=== PATIENT | male | born 1965 | race Caucasian/White ===

== ENCOUNTER 2016-06-01 09:47 | Observation (INO) ==
[2016-06-01] MEDS ORDERED: Aspirin 81 MG TAB.CHEW PO ONE (09:51)
[2016-06-01] MEDS ORDERED: Nitroglycerin 1 INCH/GM PACKET TP ONE (10:00)
--- NOTE | 2016-06-01 10:01 | Emergency Department Note ---
Disposition Clinical Impression: Chest pain Qualifiers: Chest pain type: unspecified Qualified Code(s): R07.9 - Chest pain, unspecified Hypertension Qualifiers: Hypertension type: essential hypertension Qualified Code(s): I10 - Essential ( primary) hypertension Disposition: Admitted As Inpatient Condition: Good Forms: ED Satisfaction Letter Time of Disposition: 11:42 Chest Pain HPI - General Chief Complaint: ED Chest Pain Stated Complaint: CP Time Seen by Provider: 06/01/16 09:51 Source: patient, family Mode of arrival: ambulatory Limitations: no limitations Vital Signs Reviewed: Yes Nursing Notes Reviewed: Yes - History of Present Illness HPI Narrative: 50-year-old gentleman comes in complaining of chest pain started last night about 7:30. Describes it as substernal with radiation left shoulder and left neck. Patient has had no recent workup and no history of coronary artery disease. Patient does have multiple risk factors including hypertension, cholesterol, cigarette smoking, family history. Pt complaint: chest pain Onset (ago): hour(s) (15) Duration: intermittent Onset: during rest Pain Location: substernal, left chest Severity: moderate, severe Severity scale (1-10): 7 Quality: tightness, similar to prior [place] Pain Radiation: LUE, neck Improves with: nothing Worsens with: nothing Associated symptoms: Denies: fever, cough - Related Data Home Medications Medication Instructions Recorded Confirmed Metoprolol 50 mg PO BID 12/07/14 01/12/16 Aspirin [Adult Low Dose Aspirin EC] 81 mg PO DAILY 03/05/15 01/12/16 Previous Rx's Medication Instructions Recorded Ciprofloxacin [Cipro] 500 mg PO BID #20 tablet 04/05/16 HYDROcodone/Acet 5/325 mg [[place] 1 tab PO Q6H PRN #14 tab 04/05/16 5-325 mg] MetroNIDAZOLE [Flagyl] 500 mg PO TID #30 tablet 04/05/16 Polyethylene Glycol 3350 [MiraLAX] 17 gm PO DAILY 14 Days 04/05/16 Allergies Allergy/AdvReac Type Severity Reaction Status Date / Time Iodinated Contrast Media - Allergy Rash Verified 03/05/15 23:53 Oral and [Iodinated Contrast Media - IV Dye] Penicillins [PCN] Allergy Rash Verified 03/05/15 23:53 All systems ED: reviewed and negative except as stated. Constitutional: Denies: fever, chills, weakness, weight change Eyes: Denies: eye pain, eye discharge, vision change ENT ED: Denies: ear pain, throat pain, dental pain, hearing loss, epistaxis, congestion, dysphagia Cardiovascular: Reports: chest pain. Denies: palpitations, dyspnea on exertion , edema, syncope Respiratory: Denies: cough, dyspnea, wheezes, hemoptysis, stridor Gastrointestinal: Denies: abdominal pain, nausea, vomiting, diarrhea, constipation, hematemesis, melena, hematochezia Genitourinary: Denies: urgency, dysuria, frequency, hematuria Musculoskeletal: Denies: back pain, neck pain, arthralgia, myalgia Integumentary: Denies: rash, abrasion, lesions Neurological: Denies: headache, weakness, numbness, paresthesias, confusion, abnormal gait, vertigo Psychiatric: Denies: anxiety, depression, suicidal thoughts, homicidal thoughts , auditory hallucinations, visual hallucinations Endocrine: Denies: fatigue Hematological/Lymphatic: Denies: easy bleeding, easy bruising Allergic/Immunologic: Denies: facial swelling, urticaria Chest Pain PMH - Past Medical History Medical history: Reports: atrial fibrillation, hypertension, other Surgical history: Reports: other Psychiatric history: Reports: no psych history - Social History Smoking Status: Current every day smoker Alcohol use: Reports: none Drug use: Reports: none Physical Exam - General Limitations: no limitations General appearance: alert, in no apparent distress, appears intoxicated - Head Head exam: atraumatic, normocephalic, normal inspection - Eye Eye exam: Present: normal appearance, PERRL, EOMI - ENT ENT exam: normal exam, normal oropharynx, mucous membranes moist - Neck Neck exam: Present: normal inspection, full ROM, trachea midline - Chest Chest inspection: Present: normal inspection, symmetric chest wall rise - Respiratory Respiratory exam: Present: normal lung sounds bilaterally - Cardiovascular Cardiovascular exam: Present: regular rate, normal rhythm, normal heart sounds - Abdominal Exam Abdominal exam: Present: soft, Non-Tender. Absent: tenderness, distention, guarding, rebound, rigidity - Extremities Exam Extremities exam: Present: normal inspection, full ROM. Absent: tenderness, pedal edema - Expanded Lower Extremity Exam Neurovascular/Tendon exam: Absent: motor deficit, sensory deficit, tendon deficit Gait: observed and normal - Back Exam Back exam: Present: normal inspection, full ROM. Absent: tenderness - Neurological Exam Neurological exam: Present: alert, oriented X3 - Psychiatric Psychiatric exam: Present: normal affect, normal mood - Skin Skin exam: Present: warm, dry, intact, normal color Course - Reevaluation(s) Reevaluation #1: 50-year-old gentleman with multiple risk factors who comes in complaining of chest pain which is consistent with cardiac origin chest pain his workup in the emergency department is negative. Patient has had no recent workup. We will admit the patient for evaluation of the chest pain. Time: 11:41 - Consultations Consultation #1: Discussed with , admit. Time: 11:41 Vital Signs Temperature 98.3 F 06/01/16 09:54 Pulse Rate 70 06/01/16 09:54 Respiratory Rate 16 06/01/16 09:54 Blood Pressure 192/113 06/01/16 09:54 O2 Sat by Pulse Oximetry 97 06/01/16 09:54 Temperature 98.3 F 06/01/16 09:54 Pulse Rate 64 06/01/16 11:07 Respiratory Rate 18 06/01/16 11:07 Blood Pressure 185/106 06/01/16 11:07 O2 Sat by Pulse Oximetry 100 06/01/16 11:07 Oxygen Delivery Oxygen Delivery Room Air Chest Pain - Lab Data Lab results reviewed: Yes I reviewed the patient's lab results. Result diagrams: 06/01/16 10:31 06/01/16 10:31 Lab Results 06/01/16 06/01/16 06/01/16 Range/Units 10:31 10:31 10:31 WBC 7.4 (4.3-11.1) K/mcL RBC 5.42 (4.19-5.50) M/mcL Hgb 15.8 (12.9-16.9) g/dL Hct 46.8 (37.5-50.1) % MCV 86.3 (83.0-100.0) fL MCH 29.2 (28.0-33.3) pg MCHC 33.8 (31.6-35.5) g/dL RDW 12.8 (11.5-14.5) % Plt Count 203 (140-400) K/mcL MPV 10.0 (9.4-12.4) fL Immature Gran % 0.4 (0-4) % Seg Neutrophils % 57.1 % Lymphocytes % 30.2 % Monocytes % 7.9 % Eosinophils % 3.7 % Basophils % 0.7 % Neutrophils # 4.2 (1.6-8.9) K/mcL Lymphocytes # 2.2 (0.6-4.6) K/mcL Monocytes # 0.6 (0.0-1.3) K/mcL Eosinophils # 0.3 (0.0-0.6) K/mcL Basophils # 0.1 (0.0-0.2) K/mcL PT 11.3 (9.4-12.1) Seconds INR 1.0 APTT 30.5 (26.0-36.0) Seconds Sodium (136-145) mEq/L Potassium (3.5-4.5) mEq/L Chloride (98-109) mEq/L Carbon Dioxide (19-29) mEq/L BUN (8-26) mg/dL Creatinine (0.72-1.25) mg/dL Est GFR ( Amer) (> 60) Est GFR (Non-Af Amer) (> 60) BUN/Creatinine Ratio (6-26) Glucose (70-99) mg/dL Calculated Osmolality (280-300) Calcium (8.6-10.8) mg/dL Troponin I (0-0.03) ng/mL B-Natriuretic Peptide 80 (0-100) pg/mL 06/01/16 06/01/16 Range/Units 10:31 10:31 WBC (4.3-11.1) K/mcL RBC (4.19-5.50) M/mcL Hgb (12.9-16.9) g/dL Hct (37.5-50.1) % MCV (83.0-100.0) fL MCH (28.0-33.3) pg MCHC (31.6-35.5) g/dL RDW (11.5-14.5) % Plt Count (140-400) K/mcL MPV (9.4-12.4) fL Immature Gran % (0-4) % Seg Neutrophils % % Lymphocytes % % Monocytes % % Eosinophils % % Basophils % % Neutrophils # (1.6-8.9) K/mcL Lymphocytes # (0.6-4.6) K/mcL Monocytes # (0.0-1.3) K/mcL Eosinophils # (0.0-0.6) K/mcL Basophils # (0.0-0.2) K/mcL PT (9.4-12.1) Seconds INR APTT (26.0-36.0) Seconds Sodium 137 (136-145) mEq/L Potassium 4.0 (3.5-4.5) mEq/L Chloride 105 (98-109) mEq/L Carbon Dioxide 27 (19-29) mEq/L BUN 13 (8-26) mg/dL Creatinine 0.95 (0.72-1.25) mg/dL Est GFR ( Amer) > 60 (> 60) Est GFR (Non-Af Amer) > 60 (> 60) BUN/Creatinine Ratio 14 (6-26) Glucose 96 (70-99) mg/dL Calculated Osmolality 284 (280-300) Calcium 9.2 (8.6-10.8) mg/dL Troponin I 0.00 (0-0.03) ng/mL B-Natriuretic Peptide (0-100) pg/mL - Radiology Data Radiology results reviewed: Yes I reviewed the patient's radiology results. Chest X-Ray 06/01/16 09:51 IMPRESSION: No acute process. D/ / Minesh De Jesus MD / Minesh De Jesus MD Interpreting Provider: Minesh De Jesus MD - EKG Data EKG attestation: Yes I reviewed and interpreted this EKG. EKG shows normal: sinus rhythm Rate: normal Rhythm: NSR Voltage: c/w LVH Interpretation: no acute changes Heart Score - Score History: Moderately Suspicious EKG: Normal Age: 45-65 Risk Factors: Equal/Greater than 3 risk factor or history of atherosclerotic disease Troponin: Less than normal limit HEART Score Total: 4
[2016-06-01 10:37] LABS: Basophils # 0.1 K/mcL (0.0-0.2); Basophils % 0.7 %; Eosinophils # 0.3 K/mcL (0.0-0.6); Eosinophils % 3.7 %; Hematocrit 46.8 % (37.5-50.1); Hemoglobin 15.8 g/dL (12.9-16.9); Immature Granulocytes % 0.4 % (0-4); Lymphocytes # 2.2 K/mcL (0.6-4.6); Lymphocytes % 30.2 %; Mean Corpuscular HGB Conc 33.8 g/dL (31.6-35.5); Mean Corpuscular Hemoglobin 29.2 pg (28.0-33.3); Mean Corpuscular Volume 86.3 fL (83.0-100.0); Monocytes # 0.6 K/mcL (0.0-1.3); Monocytes % 7.9 %; Neutrophils # 4.2 K/mcL (1.6-8.9); Platelet Count 203 K/mcL (140-400); Red Blood Count 5.42 M/mcL (4.19-5.50); Red Cell Distribution Width 12.8 % (11.5-14.5); Segmented Neutrophils % 57.1 %
[2016-06-01 10:45] LABS: Prothrombin Time 11.3 Seconds (9.4-12.1)
[2016-06-01 10:48] LABS: Activated Partial Thrombo Time 30.5 Seconds (26.0-36.0)
[2016-06-01 10:49] LABS: BUN/Creatinine Ratio 14 (6-26); Blood Urea Nitrogen 13 mg/dL (8-26); Calcium 9.2 mg/dL (8.6-10.8); Carbon Dioxide 27 mEq/L (19-29); Chloride 105 mEq/L (98-109); Glucose 96 mg/dL (70-99); Osmolality,Calculated 284 (280-300); Sodium 137 mEq/L (136-145); eGFR For African Americans > 60 (> 60); eGFR For Non-African Americans > 60 (> 60)
[2016-06-01] MEDS ORDERED: Naloxone 0.4 MG/ML INJ IVP PRN (12:15)
[2016-06-01] MEDS ORDERED: Acetaminophen 325 MG TABLET PO PRN (12:15)
--- NOTE | 2016-06-01 12:32 | Internal Med History&Physical ---
<Zaria Recinos M - Last Filed: 06/01/16 12:40> Date of Encounter: 06/01/16 Time of Encounter: 12:21 Assessment and Plan (1) Chest pain Current visit: Yes Status: Acute Patient with chest pain radiating to left shoulder since last evening, relieved by nitro. Risk factors include hypertension, smoking, family history. EKG showed normal sinus rhythm. Troponin negative at 0.00. Continuous playground monitor serial troponins echocardiogram stress test. Qualifiers: Chest pain type: precordial pain Qualified Code(s): R07.2 - Precordial pain (2) Hypertension Current visit: Yes Status: Acute Patient's blood pressure running high since presentation, coming down with nitro paste, with most recent BP 158/85. continue home dose of metoprolol 50mg BID Hold morning metoprolol dose for stress test. Continue to monitor. Patient may need addition of other blood pressure medications to his regimen. Qualifiers: Hypertension type: essential hypertension Qualified Code(s): I10 - Essential (primary) hypertension (3) DVT prophylaxis Current visit: Yes Status: Acute Encourage ambulation anti-embolic stockings Lovenox 40mg SQ daily Internal Medicine - H&P: HPI Chief complaint: chest pain Admitted From: Emergency Dept Plans for Post Hospital Care: Home History of present illness: Mr. Simental is a 50 year old male with hypertension, paroxysmal afib who presented to the emergency room today with complaints of chest pain. He reports the chest pain started last evening at 730 pm, was located in the left sternal area, and radiated to the left shoulder and left neck. He described the pain as constant pressure with occasional stabbing pain. The pain was relieved by nitro applied by the ED. Patient also reports occasional lightheadedness and nausea. He denies any shortness of breath, headache, abdominal pain, fever, chills, sweats. Evaluation in the ED included EKG which showed NSR, troponin which was negative at 0.00. CXR showed no acute process. Other lab values were normal. On exam, patient is alert and oriented, in no acute distress. Lungs are clear to auscultation, heart has regular rate and rhythm. Past Med Surg Social Fam HX - Past Medical History Medical history: atrial fibrillation, hypertension, other Psychiatric history: no psych history - Past Surgical History Surgical History: other (teeth extraction, fatty cyst excision) - Social History Smoking Status: Current every day smoker (27 Pack year history) Smokeless Tobacco Status: No Alcohol use: none Drug use: none - Family History Father Living Status: Still Living Hx Family Cardiac Disorders: Yes Hx Family Endocrine Disorder: Yes (diabetes) Mother Living Status: Still Living Hx Family Endocrine Disorder: Yes (diabetes) Internal Medicine - H&P: Meds Metoprolol 50 mg PO BID 12/07/14 [History] Aspirin [Adult Low Dose Aspirin EC] 81 mg PO DAILY 03/05/15 [History] Ciprofloxacin [Cipro] 500 mg PO BID #20 tablet 04/05/16 [Rx] HYDROcodone/Acet 5/325 mg [[place] 5-325 mg] 1 tab PO Q6H PRN #14 tab 04/05/16 [Rx ] MetroNIDAZOLE [Flagyl] 500 mg PO TID #30 tablet 04/05/16 [Rx] Polyethylene Glycol 3350 [MiraLAX] 17 gm PO DAILY 14 Days 04/05/16 [Rx] Allergies Iodinated Contrast Media - Oral and [Iodinated Contrast Media - IV Dye] Allergy (Verified 03/05/15 23:53) Rash Penicillins [PCN] Allergy (Verified 03/05/15 23:53) Rash All Systems PM: A 10-system review of systems was performed and is negative for pertinent findings except as documented above in the HPI. - Constitutional Constitutional: no chills, no fever(s), no night sweats - EENT Eyes: no change in vision, no discharge, no pain, no photophobia Ears: no ear discharge, no ear pain, no tinnitus Nose, mouth and throat: no dysphagia, no nasal discharge, no neck pain, no sore throat - Cardiovascular Cardiovascular ROS IM: chest pain, lightheadedness, no diaphoresis, no dyspnea, no palpitations, no syncope - Respiratory Respiratory: no cough, no dyspnea, no wheezing, no excessive phlegm production - Gastrointestinal Gastrointestinal: nausea, no abdominal pain, no diarrhea, no hematemesis, no hematochezia, no melena, no vomiting - Musculoskeletal Musculoskeletal ROS IM: no numbness, no tingling - Integumentary Integumentary IM: no rash, no unusual bruising - Neurological Neurological ROS: no confusion, no convulsions, no focal weakness, no numbness, no tingling, no tremor(s) - Hematologic/Lymphatic Hematologic/Lymphatic: no easy bruising - Constitutional Vitals: Temp Pulse Resp BP Pulse Ox 98.3 F 62 18 166/109 100 06/01/16 09:54 06/01/16 12:01 06/01/16 12:09 06/01/16 12:09 06/01/16 12:01 General appearance: Present: A&O X 3, pleasant, no acute distress - Head Head exam: Present: atraumatic, normocephalic - Eye Eye exam: Present: PERRL, conjuntiva pink, sclera anicteric - Neck Neck exam general surgery: Present: supple, trachea midline. Absent: lymphadenopathy - Respiratory Respiratory exam: Present: CTAB. Absent: accessory muscle use, rales, rhonchi, wheezes - Cardiovascular Cardiovascular exam: Present: RRR, +S1, +S2. Absent: diastolic murmur, gallop, rubs, systolic murmur - GI/Abdominal GI/Abdominal exam: Present: normal bowel sounds, soft, no peritoneal signs. Absent: distended, tenderness - Extremities Exam Extremities exam: Present: warm, radial pulses palpable and symetrical. Absent : calf tenderness, cyanotic, pedal edema - Neurological Exam Neurological exam: Present: CN II-XII intact, oriented X3, no focal deficits. Absent: facial droop, speech deficit - Skin Skin exam: Present: dry, intact Internal Med - H&P Results - Labs CBC & Chem 7: 06/01/16 10:31 06/01/16 10:31 <Greg Cervantes - Last Filed: 06/01/16 13:09> Date of Encounter: 06/01/16 Internal Medicine - H&P: HPI History of present illness: Mr. Simental is a 50 year old male All Systems PM: A 10-system review of systems was performed and is negative for pertinent findings except as documented above in the HPI. - Constitutional Vitals: Temp Pulse Resp BP Pulse Ox 97.5 F L 52 15 158/85 96 06/01/16 12:36 06/01/16 12:36 06/01/16 12:36 06/01/16 12:36 06/01/16 12:36 Internal Med - H&P Results - Labs CBC & Chem 7: 06/01/16 10:31 06/01/16 10:31 - Attending Attestation I examined this patient and my medical decision-making was reviewed with the DOCKETING SPECIALIST/PA/Advanced Practice Nurse/Resident Physician. I agree with the documented findings, disposition and treatment plan as described except to the extent set forth below. I saw and examined Mr. Simental in the emergency department. I spoke with the patient and his in the day. Patient immediately due to chest pain, he has risk factors such as hypertension, chronic active smoker, hyperlipidemia. We will admit the patient for observation and monitor his cardiac biomarkers, telemetry monitoring. We will request a stress test tomorrow in a.m. provided.cardiac biomarkers are negative for ischemia. It was discussed with our CLEANING AND WASHING EQUIPMENT OPERATOR, I agree her assessment and findings. DVT prophylaxis as per hospital protocol, obtain lipid panel. Smoking cessation was strongly recommended.
[2016-06-01] MEDS: Nicotine 21 MG PATCH.TD24 TD SCH (17:50)
--- NOTE | 2016-06-01 22:47 | Electrocardiograph Report ---
[facility] Test Date: 2016-06-01 Pat Name: Quirino Simental Department: 104 Room: 3B48 Gender: M Broadcast Supervisor: JUAN LUIS : 1965 Requested By: Chip Mayers Order Number: [id number] Reading MD: Bernard Hawkins MD Measurements Intervals [place] Rate: 64 P: 19 ID: [id number] QRS: 25 QRSD: 103 T: 52 QT: 387 QTc: 397 Interpretive Statements SINUS RHYTHM Electronically Signed On 06-01-2016 22:45:49 EDT by Bernard Hawkins MD
[2016-06-02 06:34] LABS: Basophils # 0.1 K/mcL (0.0-0.2); Basophils % 0.9 %; Eosinophils # 0.4 K/mcL (0.0-0.6); Eosinophils % 4.6 %; Hematocrit 46.1 % (37.5-50.1); Hemoglobin 15.9 g/dL (12.9-16.9); Immature Granulocytes % 0.5 % (0-4); Lymphocytes # 3.3 K/mcL (0.6-4.6); Lymphocytes % 37.9 %; Mean Corpuscular HGB Conc 34.5 g/dL (31.6-35.5); Mean Corpuscular Hemoglobin 30.1 pg (28.0-33.3); Mean Corpuscular Volume 87.1 fL (83.0-100.0); Mean Platelet Volume 10.9 fL (9.4-12.4); Monocytes # 0.7 K/mcL (0.0-1.3); Monocytes % 7.5 %; Neutrophils # 4.3 K/mcL (1.6-8.9); Platelet Count 202 K/mcL (140-400); Red Blood Count 5.29 M/mcL (4.19-5.50); Red Cell Distribution Width 13.1 % (11.5-14.5); Segmented Neutrophils % 48.6 %
[2016-06-02 06:50] LABS: BUN/Creatinine Ratio 16 (6-26); Blood Urea Nitrogen 16 mg/dL (8-26); Calcium 8.8 mg/dL (8.6-10.8); Carbon Dioxide 25 mEq/L (19-29); Chloride 106 mEq/L (98-109); Chol/HDL Ratio 6.9 (0-4.9); Cholesterol 192 mg/dL (< 200); Glucose 116 mg/dL (70-99); HDL Cholesterol 28 mg/dL (40-59); LDL Cholesterol,Calculated 102 mg/dL (0-99); Osmolality,Calculated 288 (280-300); Sodium 138 mEq/L (136-145); Triglycerides 312 mg/dL (< 150); eGFR For African Americans > 60 (> 60); eGFR For Non-African Americans > 60 (> 60)
[2016-06-02 06:54] LABS: Potassium 3.6 mEq/L (3.5-4.5)
[2016-06-02] MEDS ORDERED: *HR* Enoxaparin 40 MG/0.4 ML SYRINGE SQ SCH (07:00)
[2016-06-02] MEDS ORDERED: Aspirin Enteric Coated 81 MG Tablet PO SCH (09:00)
--- NOTE | 2016-06-02 09:43 | ECHO - Doppler Report ---
Echocardiogram Name: Quirino Simental Date of Study: 06/01/2016 Date: 1965 Ht: 76.0 in Medical Record#: [id number] Age: 50 Wt: 235.0 lb Gender: Male BSA: 2.37 Order #: [id number] [facility] Room #: 3B48 Reading Physician: Fernando Lawler DO, ROXANA SOLORIO Senior Specialist: Mala Scott RDCS Ordering Physician: Zaria Recinos CNP Primary Physician: None Indications: Chest pain Impressions: LVEF 60%. Normal LV chamber size, wall thickness and function. Atypical septal motion consistent with bundle branch block. Normal right ventricular structure and function. No evidence of pulmonary hypertension. No significant valvular dysfunction. Left Ventricular Wall Motion: Rest Echo Findings All wall segments showed normal motion. Findings: Study Quality * Technically adequate exam. ECG Findings * Sinus rhythm with BBB. Left Ventricle * LVEF 60%. * Normal LV chamber size, wall thickness and function. * Atypical septal motion consistent with bundle branch block. Right Ventricle * Normal right ventricular structure and function. Left Atrium * Mildly dilated left atrium. Right Atrium * Mildly dilated right atrium. Interatrial Septum * No evidence of PFO by color Doppler. Aortic Valve * Trileaflet aortic valve with normal function. * No aortic regurgitation. * No aortic stenosis. Mitral Valve * Normal mitral valve structure and function. * No mitral regurgitation. * No mitral stenosis. Tricuspid Valve * Normal tricuspid valve structure and function. * Trace tricuspid regurgitation. * No evidence of pulmonary hypertension. Pulmonic Valve * Pulmonic valve is not well visualized. * No pulmonic regurgitation. Aorta * Normally sized aortic root. Pericardium * The pericardium appears normal. IVC * Normal IVC dimensions and inspiratory collapse. Pulmonary Artery * Normal visualized portions of the main pulmonary artery. History Hypertension History of Smoking Years 27 Packs 1 Family History of CAD 10/29/2014 a Previous Echo was performed. Measurements: BP: 158/ 85 2D Normal Values RVIDd: 2.56 cm <2.7 cm IVSd: .66 cm 0.6 - 1.0 cm LVIDd: 5.40 cm 3.7 - 5.6 cm LVPWd: 1.01 cm 0.6 - 1.1 cm LVIDs: 2.77 cm 1.5 - 3.6 cm AO: 2.30 cm < 4.0 cm LA: 3.30 cm 2.0 - 4.0cm %FS: 52.30 cm >25 % LA volume: 45 Mitral Valve Peak E:.87 m/sec Peak A:.70 m/sec E/A Ratio:1.2 Peak E' Lat Erlin:8.08 cm/s Peak E' Med Erlin:9.45 cm/s E/E' Lat Ratio:10.7 E/E' Med Ratio:9.2 Tricuspid Valve TV Regurg Peak Grad: 20.00mmHg TV Regurg Peak Erlin: 2.24m/sec Updated by Fernando Lawler DO, OSMIN, ROXANA, DONA on 06/02/2016 9:34:10 AM electronically signed on 06/02/2016 9:37:32 AM with status of Final Wall Motion Jack: 1=Normal, 2=Hypokinesis, 3=Akinesis, 4=Dyskinesis, 5=Aneurysmal, 6=Hyperkinetic, X=Not Visualized (Blank)=Missing
[2016-06-02] MEDS: Nicotine 21 MG PATCH.TD24 TD SCH (10:51)
--- NOTE | 2016-06-02 11:15 | Nuclear Medicine Stress Report ---
Exercise Nuclear Stress Name: Quirino Simental Date of Study: 06/02/2016 Date: 1965 Ht: 76.0 in Medical Record#: [id number] Age: 50 Wt: 235.0 lb Gender: Male Order #: [id number] Location: [facility] IP Room: [facility] Supervising Provider: [place] CNP Reading Physician: Fernando Lawler DO, FACC, FASNE Ordering Physician: Marlin Hahn CNP Primary Care Physician: None Stress Technologist: Judith Maldonado MARKET RESEARCH ASSOCIATE, CCT School Bus Inspector: Wilner Pacheco Indications: Chest Pain Impression: Exercise ECG is negative for ischemia. The exercise capacity was good. Rashi protocol modified due to dyspnea. No chest pain reported. Gated EF = 63%. The left ventricle is dilated. LVEDV = 184 mL. Medium sized, mild intensity, fixed perfusion defect involving the inferior and apex segments. Wall motion appeared normal. These findings are most consistent with artifact. Perfusion imaging was negative for ischemia or infarct. History: Hypertension Hypercholesteremia History of Smoking Stress Test Summary: Stress Test Type: Treadmill Protocol: Modified Rashi Baseline Information: Initial Heart Rate: 64 Blood Pressure: 164/82 Stress Information: Stress Time: 10 min 20 sec Test Terminated Due to (primary): Dyspnea Fatigue Maximum Blood Pressure: 226/90 Maximum Heart Rate: 149 Percent Maximum Heart Rate Achieved: 88 Double Product: 80750 METS Reached: 11.6 Symptoms: Shortness of breath, Fatigue, No chest symptoms Nuclear Summary: SPECT myocardial perfusion imaging using Tc99m Sestamibi given intravenously was performed at rest and following cardiac stress testing. The resting images were obtained following initial dose of 11.2 mCi. Following stress an additional dose of 35.3 mCi was given at peak exercise or 30 seconds post regadenoson infusion. Medication Given: Time Medication Dose Units Route Findings: Stress Note * Resting ECG demonstrated normal sinus rhythm. * No baseline arrhythmias were noted. * Exercise ECG is negative for ischemia. * Three PVCs noted during stress. * The exercise capacity was good. Rashi protocol modified due to dyspnea. * Patient had no chest pain during stress. Hemodynamic responses * Patient was hypertensive at rest, which worsened with exercise. Study Quality * Study quality is average. Gated EF % * Gated EF = 63%. Left Ventricle * The left ventricle is dilated. * LVEDV = 184 mL. NORMALS * Normal wall motion. Inferior Perfusion Rest * The inferior and apex segments show a mild reduction in perfusion. Inferior Perfusion Stress * The inferior and apex segments show a mild reduction in perfusion. TID * No evidence of transient ischemic dilatation. TID ratio * TID ratio = 1.02. Lung Uptake * There is no evidence of increase lung uptake. Updated by Fernando Lawler DO, FACDanii, ROXANA, DONA on 06/02/2016 11:07:17 AM electronically signed on 06/02/2016 11:09:34 AM with status of Final
[2016-06-02 11:16] VITALS: BP 180/106
--- NOTE | 2016-06-02 12:34 | Discharge Summary ---
Date of Encounter: 06/02/16 Time of Encounter: 12:32 - Discharge Diagnosis (1) Chest pain Priority: Primary Status: Acute Qualifiers: Chest pain type: precordial pain Qualified Code(s): R07.2 - Precordial pain (2) DVT prophylaxis Priority: Secondary Status: Acute (3) Hypertension Priority: Secondary Status: Acute Qualifiers: Hypertension type: essential hypertension Qualified Code(s): I10 - Essential (primary) hypertension (4) Tobacco use disorder Priority: Secondary Status: Acute - Discharge Medications Prescriptions: Aspirin 81 mg PO DAILY #30 tab.chew Home Medications: Lisinopril/Hydrochlorothiazide [Zestoretic 20-25 mg Tablet] 1 each PO DAILY [History] Metoprolol Tartrate 50 mg PO BID 06/01/16 [History] Aspirin 81 mg PO DAILY #30 tab.chew 06/02/16 [Rx] Allergies/Adverse Reactions: Allergies Iodinated Contrast Media - Oral and [Iodinated Contrast Media - IV Dye] Allergy (Verified 03/05/15 23:53) Rash Penicillins [PCN] Allergy (Verified 03/05/15 23:53) Rash Procedures/tests Complete & Pending: Procedures Performed prior 72 hours Category Date Time Status NM kelvin perf SPECT multi [NM] Routine Exams 06/02/16 07:00 Taken EV echocardiogram Routine Y 06/01/16 12:17 Completed SP exercise nuclear stress Routine Y 06/02/16 08:00 Completed Date of admission: 06/01/16 11:52 Primary care physician: PCP ANGELA Discharging clinician: Greg Cervantes Anticipated date of discharge: 06/02/16 - Patient Status Disposition: Home, Self-Care Condition: Good Functional capacity at discharge: independent ambulation Overall status at discharge: patient is back to baseline - Discharge Instructions Follow Up With: NO,PCP [Primary Care Provider] - Additional Instructions: [facility] up [facility]. - Diet and Activity Activity: increase activity as tolerated Diet: low fat, low cholesterol, low salt diet Interval History: Mr. Simental is a 50 year old male with hypertension, paroxysmal afib who presented to the emergency room today with complaints of chest pain. He reports the chest pain started last evening at 730 pm, was located in the left sternal area, and radiated to the left shoulder and left neck. He described the pain as constant pressure with occasional stabbing pain. The pain was relieved by nitro applied by the ED. Patient also reports occasional lightheadedness and nausea. He denies any shortness of breath, headache, abdominal pain, fever, chills, sweats. Evaluation in the ED included EKG which showed NSR, troponin which was negative at 0.00. CXR showed no acute process. Other lab values were normal. On exam, patient is alert and oriented, in no acute distress. Lungs are clear to auscultation, heart has regular rate and rhythm. Hospital course: Mr. Simental is a 50 year old male admitted due to chest pain, negative trops, stress test negative , echo done no systolic dysfunctio, will d/c him home today. follow up with pcp and cardilogy. ASA on d/c. D/W patient. Smoking cessation. - Time Spent with Patient Total time spent providing and/or coordinating discharge services: - Constitutional Vitals: Temp Pulse Resp BP Pulse Ox 97.3 F L 58 18 180/106 96 06/02/16 11:16 06/02/16 11:16 06/02/16 11:16 06/02/16 11:16 06/02/16 11:16 General appearance: Present: cooperative, A&O X 3, pleasant, no acute distress - Head Head exam: Present: atraumatic, normocephalic - Eye Eye exam: Present: PERRL, conjuntiva pink, sclera anicteric Pupils: Present: PERRL - Neck Neck exam general surgery: Present: supple, trachea midline. Absent: lymphadenopathy - Respiratory Respiratory exam: Present: CTAB. Absent: accessory muscle use, rales, rhonchi, wheezes - Cardiovascular Cardiovascular exam: Present: RRR, +S1, +S2. Absent: diastolic murmur, gallop, rubs, systolic murmur - GI/Abdominal GI/Abdominal exam: Present: normal bowel sounds, soft, no peritoneal signs. Absent: distended, tenderness - Extremities Exam Extremities exam: Present: warm, radial pulses palpable and symetrical. Absent : calf tenderness, cyanotic, pedal edema - Neurological Exam Neurological exam: Present: CN II-XII intact, oriented X3, no focal deficits. Absent: pronater drift, facial droop, speech deficit - Skin Skin exam: Present: dry, intact
== END 2016-06-02 13:22 | disposition home or self-care (01) ==
LOC: 3BNU 09:47 → EMEROO 09:47 → SUATTDRO 11:52 → 3BNU 12:19
PROVIDERS: ADMIT Internal Medicine; ATTEND Internal Medicine

== ENCOUNTER 2016-11-06 19:26 | Observation (INO) ==
--- NOTE | 2016-11-06 21:03 | Internal Med History&Physical ---
<Gordon Jarrett - Last Filed: 11/06/16 23:43> Date of Encounter: 11/06/16 Time of Encounter: 21:03 Assessment and Plan (1) Chest pain Current visit: No Status: Acute RIAN score 3 Symptoms improved after taking NTG and ASA in the ED. Patient reports similar episode of chest discomfort for a few hours 2 days ago that resolved spontaneously. Patient follows with cardiology at the [facility]. EKG revealed NSR with new T wave abnormality compared to EKG 06/01/16. Patient had last nuclear stress test on 06/02/16 and echo 06/01/16 revealed 60% EV with atypical septal motion consistent with bundle branch block. Intitial troponin was negative, monitor serial troponins Started statin, continue ASA, NTG prn NPO after MN for nuclear stress test in AM Qualifiers: Chest pain type: unspecified Qualified Code(s): R07.9 - Chest pain, unspecified (2) Hypertension Current visit: No Status: Acute Patient discharged on Lisinopril/HCTZ and Metoprolol but patient is unsure which medications he takes. Contact [facility] in AM for updated medication list. Continue to monitor Qualifiers: Hypertension type: essential hypertension Qualified Code(s): I10 - Essential (primary) hypertension (3) Tobacco use disorder Current visit: No Status: Acute (4) Atrial fibrillation Current visit: Yes Status: Acute CHADS-VASc Score 1 No anticoagulation at this time. 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 Simental is a 51 year old male with a PMH of HTN, A-fib, and tobacco dependence that was transferred from [place] ER due to sharp, substernal chest pressure radiating to his left shoulder. Patient reports symptoms awoke him this morning at 7:00am and were constant for 4 hours. Patient reports associated nausea, palpitations, and diaphoresis with the pain. Symptoms improved after taking NTG and ASA in the ED. Patient reports similar episode of chest discomfort for a few hours 2 days ago that resolved spontaneously. Patient denies fever, chills, SOB, abd pain, V/D/C, lower extremity edema or calf discomfort. He reports a history of A. fib and follows with cardiology at the [facility]. He reports a family history of coronary artery disease, his father had [place] and PACER in early 50s and mother has CHF. In the ED, his intitial troponin was negative and EKG revealed NSR with new T wave abnormality compared to EKG 06/01/16. Patient had last nuclear stress test on 06/02/16 and echo 06/01/16 revealed 60% EV with atypical septal motion consistent with bundle branch block. Past Med Surg Social Fam HX - Past Medical History Medical history: atrial fibrillation, hypertension, other Psychiatric history: no psych history - Past Surgical History Surgical History: other - Social History Smoking Status: Current every day smoker Smokeless Tobacco Status: No Alcohol use: none Drug use: none Current living situation: With Family - Family History Father Living Status: Still Living Hx Family Cardiac Disorders: Yes ([place] and PACER) Hx Family Endocrine Disorder: Yes (diabetes) Mother Living Status: Hx Family Cardiac Disorders: Yes (CHF) Hx Family Cancer: Yes Hx Family Endocrine Disorder: Yes (diabetes) Internal Medicine - H&P: Meds Lisinopril/Hydrochlorothiazide [Zestoretic 20-25 mg Tablet] 1 each PO DAILY [History] Aspirin 81 mg PO DAILY #30 tab.chew 06/02/16 [Rx] 3 Allergy/AdvReac Type Severity Reaction Status Date / Time Iodinated Contrast- Oral and Allergy Rash Verified 03/05/15 23:53 IV Dye [Iodinated Contrast Media - IV Dye] Penicillins [PCN] Allergy Rash Verified 03/05/15 23:53 All Systems PM: A 10-system review of systems was performed and is negative for pertinent findings except as documented above in the HPI. - Constitutional Constitutional: excessive sweating, no chills, no fever(s), no weight gain, no weight loss - EENT Eyes: no change in vision Nose, mouth and throat: no nasal congestion, no sore throat - Cardiovascular Cardiovascular ROS IM: chest pain, diaphoresis, palpitations, no irregular heart rhythm - Respiratory Respiratory: no dyspnea, no wheezing, no pain on inspiration, no chest congestion - Gastrointestinal Gastrointestinal: nausea, no abdominal pain, no diarrhea, no vomiting - Genitourinary Genitourinary ROS male: no dysuria, no urinary frequency, no urinary urgency - Musculoskeletal Musculoskeletal ROS IM: back pain, myalgias, no numbness, no tingling - Integumentary Integumentary IM: no erythema, no rash - Neurological Neurological ROS: no confusion, no numbness, no tingling - Psychiatric Psychiatric: no anxiety, no depression - Endocrine Endocrine IM: no polydipsia, no polyphagia, no polyuria - Constitutional Vitals: Temp Pulse Resp BP Pulse Ox 98.7 F 70 16 173/93 94 11/06/16 20:40 11/06/16 20:40 11/06/16 20:40 11/06/16 20:40 11/06/16 20:40 General appearance: Present: cooperative, A&O X 3, pleasant, answers questions appropriately - Head Head exam: Present: atraumatic, normocephalic - Eye Eye exam: Present: EOMI, PERRL Pupils: Present: PERRL - Neck Neck exam general surgery: Present: supple, trachea midline. Absent: lymphadenopathy - Respiratory Respiratory exam: Present: CTAB. Absent: accessory muscle use, rales, rhonchi, wheezes - Cardiovascular Cardiovascular exam: Present: RRR, +S1, +S2. Absent: diastolic murmur, gallop, rubs, systolic murmur - GI/Abdominal GI/Abdominal exam: Present: normal bowel sounds, soft. Absent: distended, tenderness - Extremities Exam Extremities exam: Present: warm, radial pulses palpable and symmetrical. Absent : calf tenderness, cyanotic, pedal edema - Neurological Exam Neurological exam: Present: CN II-XII intact, oriented X3, no focal deficits. Absent: pronater drift, facial droop, speech deficit - Skin Skin exam: Present: dry, intact. Absent: rash Internal Med - H&P Results - Labs Labs: Lab Results 11/06/16 11/06/16 11/06/16 Range/Units 17:13 17:13 17:13 WBC (4.3-11.1) K/mcL RBC (4.19-5.50) M/mcL Hgb (12.9-16.9) g/dL Hct (37.5-50.1) % MCV (83.0-100.0) fL MCH (28.0-33.3) pg MCHC (31.6-35.5) g/dL RDW (11.5-14.5) % Plt Count (140-400) K/mcL MPV (9.4-12.4) fL Immature Gran % (0-4) % Seg Neutrophils % % Lymphocytes % % Monocytes % % Eosinophils % % Basophils % % Neutrophils # (1.6-8.9) K/mcL Lymphocytes # (0.6-4.6) K/mcL Monocytes # (0.0-1.3) K/mcL Eosinophils # (0.0-0.6) K/mcL Basophils # (0.0-0.2) K/mcL PT 11.5 (9.4-12.1) Seconds INR 1.1 APTT 30.6 (26.0-36.0) Seconds Sodium (136-145) mEq/L Potassium (3.5-4.5) mEq/L Chloride (98-109) mEq/L Carbon Dioxide (19-29) mEq/L BUN (8-26) mg/dL Creatinine (0.72-1.25) mg/dL Est GFR ( Amer) (> 60) Est GFR (Non-Af Amer) (> 60) BUN/Creatinine Ratio (6-26) Glucose (70-99) mg/dL Calculated Osmolality (280-300) Calcium (8.6-10.8) mg/dL Total Bilirubin 0.7 (0.2-1.2) mg/dL Direct Bilirubin 0.3 (0.0-0.5) mg/dL Indirect Bilirubin 0.4 (0.0-1.2) mg/dL AST 15 (5-34) Units/L ALT 21 (0-55) Units/L Alkaline Phosphatase 77 (38-126) Units/L Troponin I (0-0.03) ng/mL Serum Total Protein 7.2 (6.0-8.3) g/dL Albumin 3.9 (3.5-5.0) g/dL Globulin 3.3 (2.4-3.5) g/dL Albumin/Globulin Ratio 1.2 (1.1-2.2) Lipase 16 (8-78) Units/L 11/06/16 11/06/16 11/06/16 Range/Units 17:13 17:13 17:13 WBC 7.1 (4.3-11.1) K/mcL RBC 5.51 H (4.19-5.50) M/mcL Hgb 16.7 (12.9-16.9) g/dL Hct 47.8 (37.5-50.1) % MCV 86.8 (83.0-100.0) fL MCH 30.3 (28.0-33.3) pg MCHC 34.9 (31.6-35.5) g/dL RDW 12.4 (11.5-14.5) % Plt Count 226 (140-400) K/mcL MPV 10.2 (9.4-12.4) fL Immature Gran % 0.3 (0-4) % Seg Neutrophils % 57.8 % Lymphocytes % 32.7 % Monocytes % 5.2 % Eosinophils % 2.7 % Basophils % 1.3 % Neutrophils # 4.1 (1.6-8.9) K/mcL Lymphocytes # 2.3 (0.6-4.6) K/mcL Monocytes # 0.4 (0.0-1.3) K/mcL Eosinophils # 0.2 (0.0-0.6) K/mcL Basophils # 0.1 (0.0-0.2) K/mcL PT (9.4-12.1) Seconds INR APTT (26.0-36.0) Seconds Sodium 140 (136-145) mEq/L Potassium 3.2 L (3.5-4.5) mEq/L Chloride 106 (98-109) mEq/L Carbon Dioxide 22 (19-29) mEq/L BUN 12 (8-26) mg/dL Creatinine 1.08 (0.72-1.25) mg/dL Est GFR ( Amer) > 60 (> 60) Est GFR (Non-Af Amer) > 60 (> 60) BUN/Creatinine Ratio 11 (6-26) Glucose 164 H (70-99) mg/dL Calculated Osmolality 293 (280-300) Calcium 9.3 (8.6-10.8) mg/dL Total Bilirubin (0.2-1.2) mg/dL Direct Bilirubin (0.0-0.5) mg/dL Indirect Bilirubin (0.0-1.2) mg/dL AST (5-34) Units/L ALT (0-55) Units/L Alkaline Phosphatase (38-126) Units/L Troponin I 0.00 (0-0.03) ng/mL Serum Total Protein (6.0-8.3) g/dL Albumin (3.5-5.0) g/dL Globulin (2.4-3.5) g/dL Albumin/Globulin Ratio (1.1-2.2) Lipase (8-78) Units/L - EKG Data -: EKG Interpreted by Myself EKG shows normal: sinus rhythm, axis, ST-T waves (NSR with new T wave abnormality compared to EKG 06/01/16) - EKG Data Prior EKG available for review: yes When compared to previous EKG: there are significant changes - Impressions Chest X-Ray 11/06/16 17:10 IMPRESSION: No significant findings in the chest. D/ / Kashmir Uribe MD / Kashmir Uribe MD Interpreting Provider: Kashmir Uribe MD <Manjula Cervantes - Last Filed: 11/07/16 06:54> Date of Encounter: 11/07/16 Time of Encounter: 02:45 Internal Medicine - H&P: HPI History of present illness: Mr. Simental is a 51 year old male All Systems PM: A 10-system review of systems was performed and is negative for pertinent findings except as documented above in the HPI. - Constitutional Vitals: Temp Pulse Resp BP Pulse Ox 98.0 F 62 15 122/67 96 11/07/16 03:11 11/07/16 03:11 11/07/16 03:11 11/07/16 03:11 11/07/16 03:11 Internal Med - H&P Results - Labs CBC & Chem 7: 11/07/16 03:32 11/07/16 03:32 Labs: Short CBC 11/07/16 Range/Units 03:32 WBC 9.8 (4.3-11.1) K/mcL Hgb 15.0 D (12.9-16.9) g/dL Hct 44.9 (37.5-50.1) % Plt Count 201 (140-400) K/mcL Neutrophils # 4.3 (1.6-8.9) K/mcL BMP 11/07/16 03:32 Sodium 140 Potassium 3.5 Chloride 108 Carbon Dioxide 25 BUN 13 Creatinine 0.95 Glucose 99 Calcium 8.8 Cardiac Enzymes 11/06/16 11/07/16 Range/Units 22:12 03:32 Troponin I 0.00 0.00 (0-0.03) ng/mL Liver Function 11/07/16 Range/Units 03:32 Total Bilirubin 0.3 (0.2-1.2) mg/dL AST 13 (5-34) Units/L ALT 19 (0-55) Units/L Alkaline Phosphatase 71 (38-126) Units/L Albumin 3.4 L (3.5-5.0) g/dL - Attending Attestation I have independently seen and examined the patient. Admitted for chest pain, rule out ACS serial TNI, nuclear stress test in am, NPO after midnight Pt reported of being on Metoprolol as per his prior records, however pt not taking any medications at this time. Please verify patient's home medications in am. Case discussed with resident physician Gordon Jarrett, I agree with his documented findings, assessment,and plan except as listed above.
[2016-11-06] MEDS ORDERED: Nitroglycerin 0.4 MG TAB.SUBL SL PRN (21:51)
[2016-11-06] MEDS ORDERED: *HR* Morphine 2 MG/ML SYRINGE IVP PRN (21:51)
[2016-11-06] MEDS ORDERED: Ondansetron 4 MG/2 ML VIAL IVP PRN (21:51)
[2016-11-06] MEDS ORDERED: Naloxone 0.4 MG/ML INJ IVP PRN (21:59)
[2016-11-06] MEDS: *HR* Heparin 5,000 UNIT/ML VIAL SQ SCH (22:37)
[2016-11-06] MEDS: Lisinopril-HCTZ 20-12.5mg TABLET PO SCH (23:58)
[2016-11-07] MEDS: Nicotine 21 MG PATCH.TD24 TD SCH ×2 (00:17→10:04)
[2016-11-07 03:53] LABS: Basophils # 0.1 K/mcL (0.0-0.2); Basophils % 0.7 %; Eosinophils # 0.4 K/mcL (0.0-0.6); Eosinophils % 4.2 %; Hematocrit 44.9 % (37.5-50.1); Immature Granulocytes % 0.2 % (0-4); Lymphocytes # 4.1 K/mcL (0.6-4.6); Lymphocytes % 42.2 %; Mean Corpuscular HGB Conc 33.4 g/dL (31.6-35.5); Mean Corpuscular Hemoglobin 29.4 pg (28.0-33.3); Mean Platelet Volume 10.4 fL (9.4-12.4); Monocytes # 0.9 K/mcL (0.0-1.3); Monocytes % 9.1 %; Neutrophils # 4.3 K/mcL (1.6-8.9); Platelet Count 201 K/mcL (140-400); Red Cell Distribution Width 12.7 % (11.5-14.5); Segmented Neutrophils % 43.6 %
[2016-11-07 04:08] LABS: Alanine Aminotransferase 19 Units/L (0-55); Albumin 3.4 g/dL (3.5-5.0); Albumin/Globulin Ratio 1.1 (1.1-2.2); Alkaline Phosphatase 71 Units/L (38-126); Aspartate Amino Transferase 13 Units/L (5-34); BUN/Creatinine Ratio 14 (6-26); Bilirubin,Total 0.3 mg/dL (0.2-1.2); Blood Urea Nitrogen 13 mg/dL (8-26); Calcium 8.8 mg/dL (8.6-10.8); Carbon Dioxide 25 mEq/L (19-29); Chloride 108 mEq/L (98-109); Glucose 99 mg/dL (70-99); Magnesium 2.2 mg/dL (1.6-2.6); Osmolality,Calculated 290 (280-300); Potassium 3.5 mEq/L (3.5-4.5); Sodium 140 mEq/L (136-145); Total Protein 6.4 g/dL (6.0-8.3); eGFR For African Americans > 60 (> 60); eGFR For Non-African Americans > 60 (> 60)
[2016-11-07] MEDS: *HR* Heparin 5,000 UNIT/ML VIAL SQ SCH ×3 (05:43→22:14)
[2016-11-07] MEDS: Famotidine 20 MG/2 ML VIAL IVP SCH ×2 (05:44→17:27)
[2016-11-07] MEDS ORDERED: Regadenoson 0.4 MG/5 ML SYRINGE IVP ONE (06:03)
[2016-11-07] MEDS: Lisinopril-HCTZ 20-12.5mg TABLET PO SCH (10:04)
[2016-11-07] MEDS: Aspirin 81 MG TAB.CHEW PO SCH (10:04)
--- NOTE | 2016-11-07 15:22 | Internal Med Progress Note ---
Date of Encounter: 11/07/16 Time of Encounter: 15:20 - Assessment and plan (1) Chest pain Current Visit: No Status: Acute Assessment and plan: Presented with chest pain that woke him from sleep; also reported similar episode of chest discomfort for a few hours 2 days ago that resolved spontaneously. RIAN score 3. NTG and ASA in the ED. EKG revealed NSR with new T wave abnormality compared to EKG 06/01/16. Nuclear stress test on 06/02/16 and echo 06/01/16 revealed 60% EV with atypical septal motion consistent with bundle branch block. Serial troponin negative. Started statin, continue ASA, NTG prn. Cardiology consulted; keep NPO after MN in case Cardiology wants [facility], repeat stress Qualifiers: Chest pain type: unspecified Qualified Code(s): R07.9 - Chest pain, unspecified (2) Hypertension Current Visit: No Status: Acute Assessment and plan: per hx. BP controlled. Cont home BP medication. Monitor BP and titrate PRN Qualifiers: Hypertension type: essential hypertension Qualified Code(s): I10 - Essential (primary) hypertension (3) Atrial fibrillation Current Visit: Yes Status: Acute Assessment and plan: paroxysmal. EKG with NSR. CHADS-VASc Score 1. No anticoagulation at this time. 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 He still complains of sided chest pain described as an ache, rated 4 out of 10. Chest pain radiated to back earlier denies radiation of this time. Nothing makes chest pain better or worse, he says it just a constant ache. No SOB. - Constitutional Vitals: Temp Pulse Resp BP Pulse Ox 98.5 F 60 15 135/78 94 11/07/16 15:06 11/07/16 15:06 11/07/16 15:06 11/07/16 15:06 11/07/16 15:06 General appearance: Present: cooperative, A&O X 3, pleasant, answers questions appropriately - Head Head exam: Present: atraumatic, normocephalic - Eye Eye exam: Present: PERRL, conjuntiva pink, sclera anicteric Pupils: Present: PERRL - Neck Neck exam general surgery: Present: supple, trachea midline. Absent: lymphadenopathy - Respiratory Respiratory exam: Present: CTAB. Absent: accessory muscle use, rales, rhonchi, wheezes - Cardiovascular Cardiovascular exam: Present: RRR, +S1, +S2. Absent: diastolic murmur, gallop, rubs, systolic murmur - GI/Abdominal GI/Abdominal exam: Present: normal bowel sounds, soft, no peritoneal signs. Absent: distended, tenderness - Extremities Exam Extremities exam: Present: warm, radial pulses palpable and symmetrical. Absent : calf tenderness, cyanotic, pedal edema - Neurological Exam Neurological exam: Present: CN II-XII intact, oriented X3, no focal deficits. Absent: pronater drift, facial droop, speech deficit - Skin Skin exam: Present: dry, intact Internal Medicine: Result - Labs CBC & Chem 7: 11/07/16 03:32 11/07/16 03:32 Labs: Short CBC 11/07/16 Range/Units 03:32 WBC 9.8 (4.3-11.1) K/mcL Hgb 15.0 D (12.9-16.9) g/dL Hct 44.9 (37.5-50.1) % Plt Count 201 (140-400) K/mcL Neutrophils # 4.3 (1.6-8.9) K/mcL BMP 11/07/16 03:32 Sodium 140 Potassium 3.5 Chloride 108 Carbon Dioxide 25 BUN 13 Creatinine 0.95 Glucose 99 Calcium 8.8 Cardiac Enzymes 11/06/16 11/07/16 11/07/16 Range/Units 22:12 03:32 10:03 Troponin I 0.00 0.00 0.01 (0-0.03) ng/mL Liver Function 11/07/16 Range/Units 03:32 Total Bilirubin 0.3 (0.2-1.2) mg/dL AST 13 (5-34) Units/L ALT 19 (0-55) Units/L Alkaline Phosphatase 71 (38-126) Units/L Albumin 3.4 L (3.5-5.0) g/dL Consult Discharge Plan - Plan Referrals: NONE,PCP [Primary Care Provider] -
[2016-11-08 04:26] LABS: Hematocrit 47.2 % (37.5-50.1); Hemoglobin 16.1 g/dL (12.9-16.9); Mean Corpuscular HGB Conc 34.1 g/dL (31.6-35.5); Mean Corpuscular Hemoglobin 29.8 pg (28.0-33.3); Mean Corpuscular Volume 87.2 fL (83.0-100.0); Mean Platelet Volume 10.3 fL (9.4-12.4); Platelet Count 208 K/mcL (140-400); Red Blood Count 5.41 M/mcL (4.19-5.50); Red Cell Distribution Width 12.6 % (11.5-14.5)
[2016-11-08 04:43] LABS: Alanine Aminotransferase 19 Units/L (0-55); Albumin 3.4 g/dL (3.5-5.0); Albumin/Globulin Ratio 1.1 (1.1-2.2); Alkaline Phosphatase 74 Units/L (38-126); Aspartate Amino Transferase 15 Units/L (5-34); BUN/Creatinine Ratio 10 (6-26); Bilirubin,Total 0.4 mg/dL (0.2-1.2); Blood Urea Nitrogen 11 mg/dL (8-26); Calcium 9.1 mg/dL (8.6-10.8); Carbon Dioxide 28 mEq/L (19-29); Chloride 101 mEq/L (98-109); Globulin 3.2 g/dL (2.4-3.5); Glucose 98 mg/dL (70-99); Osmolality,Calculated 285 (280-300); Potassium 3.4 mEq/L (3.5-4.5); Sodium 138 mEq/L (136-145); Total Protein 6.6 g/dL (6.0-8.3); eGFR For African Americans > 60 (> 60); eGFR For Non-African Americans > 60 (> 60)
[2016-11-08] MEDS: Famotidine 20 MG/2 ML VIAL IVP SCH ×2 (06:09→18:20)
[2016-11-08] MEDS: *HR* Heparin 5,000 UNIT/ML VIAL SQ SCH ×3 (06:09→20:29)
[2016-11-08] MEDS: Nicotine 21 MG PATCH.TD24 TD SCH (10:25)
[2016-11-08] MEDS: Lisinopril-HCTZ 20-12.5mg TABLET PO SCH (10:25)
[2016-11-08] MEDS: Aspirin 81 MG TAB.CHEW PO SCH (10:25)
--- NOTE | 2016-11-08 10:34 | Cardiology Consult Note ---
<Segun Mayer - Last Filed: 11/08/16 12:22> Date of Encounter: 11/08/16 Time of Encounter: 09:45 Assessment and Plan (1) Right upper quadrant abdominal pain Current Visit: Yes Status: Acute Patient reports his presenting symptoms usually occur after meals. He also reports history of positive abdominal ultrasound at [facility] for cholelithiasis. We recommend consulting surgery for possible cholecystectomy. He currently denies nausea or vomiting, but has diarrhea. Continue with GI prophylaxis and pain management. (2) Chest pain Current Visit: No Status: Acute Patient's chest pain is non-exertional and related to food intake. He also reports episodes of associated diarrhea. His EKG revealed NSR with no significant changes when compared to 06/01/16 and troponins are negative x3. His nuclear stress test on 06/02/16 was negative after >10 minutes and his echo on revealed 60% EF. His chest pain does not appear to be of cardiac etiology and likely related to possible cholecystitis. Heart cath not recommended at this time. Instead, we recommend to consult surgery for possible cholecystectomy secondary to symptomatic cholecystitis. Qualifiers: Chest pain type: unspecified Qualified Code(s): R07.9 - Chest pain, unspecified (3) Atrial fibrillation Current Visit: No Status: Acute Patient reports history of atrial fibrillation currently not on any anticoagulation. His EKG at this visit is NSR. Follow up with cardiology outpatient. Qualifiers: Atrial fibrillation type: paroxysmal Qualified Code(s): I48.0 - Paroxysmal atrial fibrillation (4) Hypertension Current Visit: No Status: Acute The patient has a history of uncontrolled hypertension. His SBP is ranging from 130s to 160s, DBP in the 80s. The patient is currently asymptomatic. He reports lisinopril, unknown dose, at home and aspirin. He recently discontinued metoprolol for unknown reasons. Continue to manage with Prinzide 20-12.5 during inpatient visit. Follow-up outpatient with primary care physician. Qualifiers: Hypertension type: essential hypertension Qualified Code(s): I10 - Essential (primary) hypertension (5) Hypokalemia Current Visit: Yes Status: Acute Potassium = 3.4 today. EKG is NSR and patient denies any palpitations or abnormal heart beats. Continue to monitor with BMP and provide potassium as needed. (6) Tobacco use disorder Current Visit: No Status: Acute Patient has a 25+ 1 pack/year history of smoking. Continue nicotine patch as needed. We consulted on the importance of smoking cessation to prevent CVD. Highly recommended starting plan on smoking cessation in the outpatient setting. (7) DVT prophylaxis Current Visit: No Status: Acute Continue Heparin for DVT prophylaxis. Discussion w patient/family: The assessment and plan as outlined above was discussed with the patient and/or family members who expressed understanding and agreement. All questions were answered. Thank you for involving us in the care of your patient. Please call with any questions. History of Present Illness Consult date: 11/07/16 Consult reason: Worsening atypical chest pain with multiple hospital admissions Chief complaint: Sharp chest pain that radiates to left shoulder and the back History of present illness: Mr. Simental is a 51 year old male with past medical history of HTN, atrial fibrillation, and tobacco dependence 25+ pack per year that presents for worsening sharp, substernal chest pain that radiates to this left shoulder and back. The patient has had multiple hospitalizations for similar complaints for the last 2 years. However, he states that the chest pain is worsening and occurring more often. He reports symptoms occurred last and resolved spontaneously after several hours. However, chest pain woke him up on Tuesday morning at 7:00am and lasted for 5 hours before he came to the ED. He reports associated fatigue, nausea, palpitations, and diaphoresis. His symptoms resolved after taking NTG and ASA in ED. He denies fever, chills, shortness of breath, abdominal pain, vomit, diarrhea, constipation. T-wave abnormality. His troponin are negative x3. EKG was NSR with T-wave abnormalities that were observed in May as well. He also reports history of A. fib and follows with cardiology at the [facility]; he cannot recall the medication he takes for it but reports that diltiazem sounds like it. Last nuclear stress test was on 06/02/16 and was unremarkable. Last echo on 06/01/16 revealed 60% EF with atypical septal motion consistent with bundle blank block. Patient reports allergy for IV dye (hives). Today, his symptoms have resolved. He is doing well and has been NPO since midnight for possible heart cath. at bedside and he is willing to have heart cath if required. He reports history of gallstones with abdominal ultrasound done at [facility]. Past Med Surg Social Fam HX - Past Medical History Medical history: atrial fibrillation, hypertension, other Psychiatric history: no psych history - Past Surgical History Surgical History: other - Social History Smoking Status: Current every day smoker Smokeless Tobacco Status: No Alcohol use: none Drug use: none - Family History Father Living Status: Still Living Hx Family Cardiac Disorders: Yes (PR and PACER) Hx Family Endocrine Disorder: Yes (diabetes) Mother Living Status: Hx Family Cardiac Disorders: Yes (CHF) Hx Family Cancer: Yes Hx Family Endocrine Disorder: Yes (diabetes) Medications and Allergies Aspirin 81 mg PO DAILY #30 tab.chew 06/02/16 [Rx] 3 Allergy/AdvReac Type Severity Reaction Status Date / Time Iodinated Contrast- Oral and Allergy Rash Verified 03/05/15 23:53 IV Dye [Iodinated Contrast Media - IV Dye] Penicillins [PCN] Allergy Rash Verified 03/05/15 23:53 All Systems Review: A 10-system review of systems was performed and is negative for pertinent findings except as documented above in the HPI. - Constitutional Constitutional: fatigue, no anorexia, no chills, no fever(s), no headache(s), no weakness - EENT Nose, mouth and throat: no sore throat - Cardiovascular Cardiovascular: chest pain at rest (occurs after work), diaphoresis, irregular heart rhythm, radiating jaw, neck or arm pain (radiating pain to left arm and back), palpitations, no dyspnea at rest, no dyspnea on exertion - Respiratory Respiratory: no cough, no dyspnea, no hemoptysis - Gastrointestinal Gastrointestinal: no abdominal pain, no constipation, no diarrhea - Integumentary Integumentary: no rash - Neurological Neurological: no abnormal speech, no focal weakness - Hematological/Lymphatic Hematologic/Lymphatic: no easy bleeding Physical Examination Vital Signs, Last 4 Hours Temp Pulse Resp BP Pulse Ox 11/08/16 07:33 97.8 F 57 20 156/97 95 General: Conversant, No Apparent Distress HEENT: Atraumatic, Normocephaly, Mucus Membranes Moist Neck: No JVD, Normal carotid pulses Cardiac: Reg Rate and Rhythm, Normal S1 and S2, No Murmur Lungs: Normal Breath Sounds, No Wheeze, Rales, Rhonchi Neuro: Alert and responsive, No focal deficits noted Abdomen: Soft, Other (+ Chu's sign) Skin: No rashes noted on visualized skin Musculoskeletal: No Chest Wall Tenderness Extremities: No Clubbing, No Cyanosis, No Edema, Normal Pulses Results 11/08/16 03:55 11/08/16 03:55 Lab Results 11/07/16 11/08/16 11/08/16 10:03 03:55 03:55 WBC 9.5 Hgb 16.1 Hct 47.2 Plt Count 208 Sodium 138 Potassium 3.4 L Chloride 101 Carbon Dioxide 28 BUN 11 Creatinine 1.14 Glucose 98 Calcium 9.1 Total Bilirubin 0.4 AST 15 ALT 19 Alkaline Phosphatase 74 Troponin I 0.01 Consult Discharge Plan - Plan Referrals: NONE,PCP [Primary Care Provider] - <Fidencio Richmond - Last Filed: 11/08/16 18:09> Date of Encounter: 11/08/16 Assessment and Plan Discussion w patient/family: The assessment and plan as outlined above was discussed with the patient and/or family members who expressed understanding and agreement. All questions were answered. Thank you for involving us in the care of your patient. Please call with any questions. History of Present Illness History of present illness: Mr. Simental is a 51 year old male All Systems Review: A 10-system review of systems was performed and is negative for pertinent findings except as documented above in the HPI. Physical Examination Vital Signs, Last 4 Hours Temp Pulse Resp BP Pulse Ox 11/08/16 15:27 97.7 F 57 20 135/80 95 Results 11/08/16 03:55 11/08/16 03:55 Lab Results 11/08/16 11/08/16 11/08/16 03:55 03:55 13:01 WBC 9.5 Hgb 16.1 Hct 47.2 Plt Count 208 Sodium 138 Potassium 3.4 L Chloride 101 Carbon Dioxide 28 BUN 11 Creatinine 1.14 Glucose 98 Calcium 9.1 Total Bilirubin 0.4 AST 15 ALT 19 Alkaline Phosphatase 74 Lipase 24 - Attending Attestation Pt seen and examined idependently, chart reviewed, essentially agree with above , my evaluation as below: CC: Mid epigastric pain HPI: PT complains of sudden onset mid epigastric chest pain, occurs at rest, not with exertion, radiates to back and under left scapula, lasts fifteen minutes to several hours, severe 9/10, associated with nausea and sometimes diuresis. Pt reports pain improves with positional changes, but does not resolve. He has undergone multiple cardiac evaluations over last six months for this pain, including normal stress imaging and normal echocardiography. Pt reports [facility], told he has moderate sized gallstones, but asymptomatic at the time, and no surgical intervention was recommended at that time. PE: Agree with above, right upper quadrant tender to deep palpation, reproduces admission pain. IMP: 1. Chest pain, atypical, most consistent with cholelithiasis, has ruled out for acute mi, recommend surgical consult, obtain old records from [facility] pertaining to cholelithiasis. 2. Cholelithiasis: suspect etiology to chest pain, await old records surgical consultation. 3. Paroxismal atrial fib, maintaining NSR, discussed options for long-term anticoagulation post op[. 4. Benign essential hypertension, better controlled, continue to monitor. 5. Tobacco abuse, discussed smoking cessation, recommend pt pick a stop date.
[2016-11-08] MEDS ORDERED: Verapamil 5 MG/2 ML VIAL ONE (15:05)
[2016-11-08] MEDS ORDERED: Nitroglycerin 1,000 MCG/10 ML VIAL IV ONE (15:06)
[2016-11-08] MEDS ORDERED: 0.9 % Sodium Chloride 1,000 ML ONE (15:06)
[2016-11-08] MEDS ORDERED: Heparin 1,000 UNITS/500 mL NS 500 ML ONE (15:06)
[2016-11-08] MEDS ORDERED: *HR* Heparin 10,000 UNIT/10 ML VIAL ONE (15:06)
--- NOTE | 2016-11-08 16:14 | Internal Med Progress Note ---
Date of Encounter: 11/08/16 Time of Encounter: 16:10 - Assessment and plan (1) Cholelithiasis Current Visit: Yes Status: Acute Assessment and plan: presented with chest pain that is worse after eating. Evaluated by Cardiology who did not feel chest pain was cardiac in etiology. RUQ US showed c holelithiasis without sonographic evidence of cholecystitis. Lipase, LFTs and bilirubin normal. General SUrgery consulted. Plan for hida scan 11/09; if patient has sx's with exam then will likley proceed with cholecystectomy this admission Qualifiers: Cholelithiasis location: gallbladder Cholecystitis presence: without cholecystitis Biliary obstruction: without biliary obstruction Qualified Code(s): K80.20 - Calculus of gallbladder without cholecystitis without obstruction (2) Chest pain Current Visit: No Status: Acute Assessment and plan: Presented with chest pain that woke him from sleep; also reported similar episode of chest discomfort for a few hours 2 days ago that resolved spontaneously. RIAN score 3. NTG and ASA in the ED. EKG revealed NSR with new T wave abnormality compared to EKG 06/01/16. Nuclear stress test on 06/02/16 and echo 06/01/16 revealed 60% EV with atypical septal motion consistent with bundle branch block. Serial troponin negative. Evaluated by Cardiology and no further work-up indicated as not ACS and like due to cholecystitis Qualifiers: Chest pain type: unspecified Qualified Code(s): R07.9 - Chest pain, unspecified (3) Hypertension Current Visit: No Status: Acute Assessment and plan: per hx. BP controlled. Cont home BP medication. Monitor BP and titrate PRN Qualifiers: Hypertension type: essential hypertension Qualified Code(s): I10 - Essential (primary) hypertension (4) Atrial fibrillation Current Visit: No Status: Acute Assessment and plan: paroxysmal. EKG with NSR. CHADS-VASc Score 1. No anticoagulation at this time. Follows with [facility] at the [facility]. Can follow-up as needed Qualifiers: Atrial fibrillation type: paroxysmal Qualified Code(s): I48.0 - Paroxysmal atrial fibrillation (5) Tobacco use disorder Current Visit: No Status: Acute Assessment and plan: Current smoker, cessation advised (6) DVT prophylaxis Current Visit: No Status: Acute Assessment and plan: heparin - Subjective Interval history: Seen and examined at bedside, patient is due to me, information obtained from chart review and patient report. He still complains of sided chest pain described as an ache, rated 4 out of 10. Chest pain radiated to back earlier denies radiation of this time. Nothing makes chest pain better or worse, he says it just a constant ache. No SOB. - Constitutional Vitals: Temp Pulse Resp BP Pulse Ox 97.7 F 57 20 135/80 95 11/08/16 15:27 11/08/16 15:27 11/08/16 15:27 11/08/16 15:27 11/08/16 15:27 General appearance: Present: cooperative, A&O X 3, pleasant, answers questions appropriately Internal Medicine: Result - Labs CBC & Chem 7: 11/08/16 03:55 11/08/16 03:55 Labs: Short CBC 11/08/16 Range/Units 03:55 WBC 9.5 (4.3-11.1) K/mcL Hgb 16.1 (12.9-16.9) g/dL Hct 47.2 (37.5-50.1) % Plt Count 208 (140-400) K/mcL BMP 11/08/16 03:55 Sodium 138 Potassium 3.4 L Chloride 101 Carbon Dioxide 28 BUN 11 Creatinine 1.14 Glucose 98 Calcium 9.1 Liver Function 11/08/16 Range/Units 03:55 Total Bilirubin 0.4 (0.2-1.2) mg/dL AST 15 (5-34) Units/L ALT 19 (0-55) Units/L Alkaline Phosphatase 74 (38-126) Units/L Albumin 3.4 L (3.5-5.0) g/dL - Impressions Impressions Abdomen Ultrasound 11/08/16 14:00 IMPRESSION: Cholelithiasis without sonographic evidence of cholecystitis. Hepatomegaly and diffuse hepatic steatosis. D/ / 11/08/2016 14:52:35 Edi Garcia MD / zach Interpreting Provider: Edi Garcia MD Consult Discharge Plan - Plan Referrals: NONE,PCP [Primary Care Provider] -
[2016-11-09] MEDS: *HR* Heparin 5,000 UNIT/ML VIAL SQ SCH ×3 (05:36→20:38)
[2016-11-09] MEDS: Famotidine 20 MG/2 ML VIAL IVP SCH ×2 (05:37→20:40)
[2016-11-09] MEDS ORDERED: *HR* Morphine 2 MG/ML SYRINGE IVP ONE (06:50)
[2016-11-09 08:19] LABS: Hematocrit 48.5 % (37.5-50.1); Hemoglobin 16.2 g/dL (12.9-16.9); Mean Corpuscular HGB Conc 33.4 g/dL (31.6-35.5); Mean Corpuscular Volume 86.9 fL (83.0-100.0); Mean Platelet Volume 10.4 fL (9.4-12.4); Platelet Count 227 K/mcL (140-400); Red Blood Count 5.58 M/mcL (4.19-5.50); Red Cell Distribution Width 12.6 % (11.5-14.5)
[2016-11-09 08:21] LABS: Alanine Aminotransferase 22 Units/L (0-55); Albumin 3.7 g/dL (3.5-5.0); Albumin/Globulin Ratio 1.1 (1.1-2.2); Alkaline Phosphatase 87 Units/L (38-126); Aspartate Amino Transferase 17 Units/L (5-34); BUN/Creatinine Ratio 11 (6-26); Bilirubin,Total 0.5 mg/dL (0.2-1.2); Blood Urea Nitrogen 12 mg/dL (8-26); Calcium 9.4 mg/dL (8.6-10.8); Carbon Dioxide 29 mEq/L (19-29); Chloride 102 mEq/L (98-109); Globulin 3.4 g/dL (2.4-3.5); Glucose 143 mg/dL (70-99); Osmolality,Calculated 290 (280-300); Potassium 3.5 mEq/L (3.5-4.5); Sodium 139 mEq/L (136-145); Total Protein 7.1 g/dL (6.0-8.3); eGFR For African Americans > 60 (> 60); eGFR For Non-African Americans > 60 (> 60)
[2016-11-09 08:23] LABS: INR 0.9
[2016-11-09] MEDS: Lisinopril-HCTZ 20-12.5mg TABLET PO SCH (09:37)
[2016-11-09] MEDS: Nicotine 21 MG PATCH.TD24 TD SCH (09:38)
--- NOTE | 2016-11-09 10:22 | General Surgery Consult Note ---
<Leandra Story - Last Filed: 11/09/16 11:34> Date of Encounter: 11/09/16 Time of Encounter: 10:00 Assessment and Plan (1) Symptomatic cholelithiasis Current Visit: Yes Status: Acute Symptoms are consistent with symptomatic cholelithiasis. He is recommended to undergo a laproscopic cholecystectomy. The risks, benefits, and option of waiting were reviewed with the patient and he wishes to proceed. We will plan for surgical intervention in the next 24-48 hours. Signed consent per hard chart. (2) Hypertension Current Visit: Yes Status: Chronic Management per medicine Qualifiers: Hypertension type: essential hypertension Qualified Code(s): I10 - Essential (primary) hypertension (3) DVT prophylaxis Current Visit: No Status: Acute EPCDs while in bed. Frequent ambulation. (4) Tobacco use disorder Current Visit: Yes Status: Chronic Will add Duonebs presurgery and continue post-surgical. IS instruction and use now and 10 x QH while awake. (5) Atrial fibrillation Current Visit: No Status: Chronic Not on Chronic anticoagulation Qualifiers: Atrial fibrillation type: paroxysmal Qualified Code(s): I48.0 - Paroxysmal atrial fibrillation History of Present Illness Consult date: 11/08/16 (Dr. Tse) Reason for consult: gallstones Requesting physician: Brigid Rojas History of present illness: Quirino is a 51 -year-old male with a history of PAF (not on chronic anticoagulation), hypertension, smoking addiction 1/2-1 pack per day for 30 years, denies illicit drug use or alcohol use who presented for left sided chest and abdomen pain. Surgery has been asked to evaluate the patient for consideration of possible surgical intervention. He reports that he has had intermittent mid abdomen pain that radiates to the left chest and side for the last 2 years that feels sharp and stabbing. He reports that on this past and Tuesday he had two acute episodes that were worse than normal, started in the mid-abdomen, radiated to the left, associated with nausea and diaphoresis, had no aggravating or alleviating factors. He reports that following the episodes he has right sided tenderness and feelings of intense fatigue. He was evaluated and cardiogenic nature was ruled out. His abdominal ultrasound revealed several stones and no evidence of acute cholecystitis. He completed a Hida scan today but was not given kinevec. He has al=n allergy to IV contrast and therefore no CT has been completed. He denies headache, dizziness, syncope, near syncope, chest pain, changes in bowel habits, black bloody, or tarry stool. He denies SOB. He denies coffee ground or BRB emetisis. Past Med Surg Social Fam HX - Past Medical History Source: patient Medical history: atrial fibrillation, hypertension, other Psychiatric history: no psych history - Past Surgical History Surgical History: other - Social History Smoking Status: Current every day smoker Packs per day: 1/2-1 Smokeless Tobacco Status: No Alcohol use: none Drug use: none Occupational status: unemployed Current living situation: Home - Independent Recent Out of Country Travel Within the Last 8 Weeks: No Exposure or Possible Exposure to Illness During Travel: No - Family History Father Living Status: Still Living Hx Family Cardiac Disorders: Yes ([place] and PACER) Hx Family Endocrine Disorder: Yes (diabetes) Mother Living Status: Hx Family Cardiac Disorders: Yes (CHF) Hx Family Cancer: Yes Hx Family Endocrine Disorder: Yes (diabetes) Medications and Allergies Aspirin 81 mg PO DAILY #30 tab.chew 06/02/16 [Rx] 3 Allergy/AdvReac Type Severity Reaction Status Date / Time Iodinated Contrast- Oral and Allergy Rash Verified 03/05/15 23:53 IV Dye [Iodinated Contrast Media - IV Dye] Penicillins [PCN] Allergy Rash Verified 03/05/15 23:53 Review of Systems All systems PM: A 10-system review of systems was performed and is negative for pertinent findings except as documented above in the HPI. General Surgery Exam Initial Vital Signs Temp Pulse Resp BP Pulse Ox 98.7 F 70 16 173/93 94 11/06/16 20:40 11/06/16 20:40 11/06/16 20:40 11/06/16 20:40 11/06/16 20:40 - General physical appearance well developed, well nourished, no distress, no pain - Eyes normal ocular movement - ENT normal nares, Other (Endentulous) - Neck trachea midline - Respiratory normal respiratory effort, clear to auscultation, other (Decreased) - Cardiovascular Cardiovascular exam: Present: RRR, no murmurs/rubs/gallops - Abdomen Abdomen general surgery: Present: bowel sounds present, soft, tender Abdominal Tenderness: Present: RUQ (+ Chu's sign) - Integumentary Integumentary general surgery: Present: warm and dry, no abnormal pigmentation - Neurologic Present: CN 2-12 grossly intact, normal coordination, normal sensation - Musculoskeletal Present: normal gait, normal posture - Psychiatric Psychiatric general surgery: Present: A&Ox3, appropriate, oriented to person, oriented to place, oriented to time, speech is normal, memory intact Exam Initial Vital Signs Temp Pulse Resp BP Pulse Ox 98.7 F 70 16 173/93 94 11/06/16 20:40 11/06/16 20:40 11/06/16 20:40 11/06/16 20:40 11/06/16 20:40 Results - Labs 11/09/16 07:54 11/09/16 07:54 Abnormal lab results RBC 5.58 M/mcL (4.19-5.50) H 11/09/16 07:54 Glucose 143 mg/dL (70-99) H 11/09/16 07:54 Diabetes panel 11/09/16 Range/Units 07:54 Sodium 139 (136-145) mEq/L Potassium 3.5 (3.5-4.5) mEq/L Chloride 102 (98-109) mEq/L Carbon Dioxide 29 (19-29) mEq/L BUN 12 (8-26) mg/dL Creatinine 1.14 (0.72-1.25) mg/dL Glucose 143 H (70-99) mg/dL Calcium 9.4 (8.6-10.8) mg/dL AST 17 (5-34) Units/L ALT 22 (0-55) Units/L Alkaline Phosphatase 87 (38-126) Units/L Albumin 3.7 (3.5-5.0) g/dL Calcium panel 11/09/16 Range/Units 07:54 Calcium 9.4 (8.6-10.8) mg/dL Albumin 3.7 (3.5-5.0) g/dL Pituitary panel 11/09/16 Range/Units 07:54 Sodium 139 (136-145) mEq/L Potassium 3.5 (3.5-4.5) mEq/L Chloride 102 (98-109) mEq/L Carbon Dioxide 29 (19-29) mEq/L BUN 12 (8-26) mg/dL Creatinine 1.14 (0.72-1.25) mg/dL Glucose 143 H (70-99) mg/dL Calcium 9.4 (8.6-10.8) mg/dL Adrenal panel 11/09/16 Range/Units 07:54 Sodium 139 (136-145) mEq/L Potassium 3.5 (3.5-4.5) mEq/L Chloride 102 (98-109) mEq/L Carbon Dioxide 29 (19-29) mEq/L BUN 12 (8-26) mg/dL Creatinine 1.14 (0.72-1.25) mg/dL Glucose 143 H (70-99) mg/dL Calcium 9.4 (8.6-10.8) mg/dL Total Bilirubin 0.5 (0.2-1.2) mg/dL AST 17 (5-34) Units/L ALT 22 (0-55) Units/L Alkaline Phosphatase 87 (38-126) Units/L Albumin 3.7 (3.5-5.0) g/dL All other labs normal. - Imaging Additional studies: Abdomen Ultrasound 11/08/16 14:00 IMPRESSION: Cholelithiasis without sonographic evidence of cholecystitis. Hepatomegaly and diffuse hepatic steatosis. D/ / 11/08/2016 14:52:35 Edi Garcia MD / zach Interpreting Provider: Edi Garcia MD Bile Acid Absorption NM 11/08/16 16:21 IMPRESSION: 1. Cystic duct and common bile duct are patent. No evidence of acute cholecystitis. D/ / Gerardo Alcaraz MD / Gerardo Alcaraz MD Interpreting Provider: Gerardo Alcaraz MD Consult Discharge Plan - Plan Referrals: NONE,PCP [Primary Care Provider] - <Darlene Tse - Last Filed: 11/09/16 15:41> Date of Encounter: 11/09/16 Assessment and Plan (1) Cholelithiasis Current Visit: Yes Status: Chronic seen on US of gallbladder Qualifiers: Cholelithiasis location: gallbladder Cholecystitis presence: without cholecystitis Biliary obstruction: without biliary obstruction Qualified Code(s): K80.20 - Calculus of gallbladder without cholecystitis without obstruction (2) Right upper quadrant abdominal pain Current Visit: Yes Status: Chronic patients is tender RUQ (3) Symptomatic cholelithiasis Current Visit: Yes Status: Acute (4) Hypertension Current Visit: Yes Status: Chronic Qualifiers: Hypertension type: essential hypertension Qualified Code(s): I10 - Essential (primary) hypertension (5) Tobacco use disorder Current Visit: Yes Status: Chronic (6) DVT prophylaxis Current Visit: No Status: Acute (7) Atrial fibrillation Current Visit: No Status: Chronic Qualifiers: Atrial fibrillation type: paroxysmal Qualified Code(s): I48.0 - Paroxysmal atrial fibrillation (8) Symptomatic cholelithiasis Current Visit: Yes Status: Chronic discussed with patient that his complaints and exam as well as imaging are consistent with symptomatic cholelithiasis. Will plan laparoscopic cholecystectomy, possible cholangiograms possible open, risks and benefits discussed and he wishes to proceed npo ivf hydration pain control gi/dvt prophylaxis. Review of Systems All systems PM: A 10-system review of systems was performed and is negative for pertinent findings except as documented above in the HPI. General Surgery Exam Initial Vital Signs Temp Pulse Resp BP Pulse Ox 98.7 F 70 16 173/93 94 11/06/16 20:40 11/06/16 20:40 11/06/16 20:40 11/06/16 20:40 11/06/16 20:40 - General physical appearance well developed, well nourished, no distress, no pain - Eyes PERRL, normal ocular movement - ENT normal nares - Neck trachea midline - Respiratory normal respiratory effort - Cardiovascular Cardiovascular exam: Present: RRR, no murmurs/rubs/gallops - Abdomen Abdomen general surgery: Present: bowel sounds present, soft - Integumentary Integumentary general surgery: Present: warm and dry, no abnormal pigmentation - Neurologic Present: CN 2-12 grossly intact - Musculoskeletal Present: normal gait, normal posture - Psychiatric Psychiatric general surgery: Present: A&Ox3, speech is normal Exam Initial Vital Signs Temp Pulse Resp BP Pulse Ox 98.7 F 70 16 173/93 94 11/06/16 20:40 11/06/16 20:40 11/06/16 20:40 11/06/16 20:40 11/06/16 20:40 Results - Labs 11/09/16 07:54 11/09/16 07:54 Abnormal lab results RBC 5.58 M/mcL (4.19-5.50) H 11/09/16 07:54 Glucose 143 mg/dL (70-99) H 11/09/16 07:54 Diabetes panel 11/09/16 Range/Units 07:54 Sodium 139 (136-145) mEq/L Potassium 3.5 (3.5-4.5) mEq/L Chloride 102 (98-109) mEq/L Carbon Dioxide 29 (19-29) mEq/L BUN 12 (8-26) mg/dL Creatinine 1.14 (0.72-1.25) mg/dL Glucose 143 H (70-99) mg/dL Calcium 9.4 (8.6-10.8) mg/dL AST 17 (5-34) Units/L ALT 22 (0-55) Units/L Alkaline Phosphatase 87 (38-126) Units/L Albumin 3.7 (3.5-5.0) g/dL Calcium panel 11/09/16 Range/Units 07:54 Calcium 9.4 (8.6-10.8) mg/dL Albumin 3.7 (3.5-5.0) g/dL Pituitary panel 11/09/16 Range/Units 07:54 Sodium 139 (136-145) mEq/L Potassium 3.5 (3.5-4.5) mEq/L Chloride 102 (98-109) mEq/L Carbon Dioxide 29 (19-29) mEq/L BUN 12 (8-26) mg/dL Creatinine 1.14 (0.72-1.25) mg/dL Glucose 143 H (70-99) mg/dL Calcium 9.4 (8.6-10.8) mg/dL Adrenal panel 11/09/16 Range/Units 07:54 Sodium 139 (136-145) mEq/L Potassium 3.5 (3.5-4.5) mEq/L Chloride 102 (98-109) mEq/L Carbon Dioxide 29 (19-29) mEq/L BUN 12 (8-26) mg/dL Creatinine 1.14 (0.72-1.25) mg/dL Glucose 143 H (70-99) mg/dL Calcium 9.4 (8.6-10.8) mg/dL Total Bilirubin 0.5 (0.2-1.2) mg/dL AST 17 (5-34) Units/L ALT 22 (0-55) Units/L Alkaline Phosphatase 87 (38-126) Units/L Albumin 3.7 (3.5-5.0) g/dL All other labs normal. - Attending Attestation I have personally performed a face to face evaluation on this patient. I have reviewed and agree with the care plan. History and Exam by me shows:
[2016-11-09] MEDS: Ipratropium/Albuterol Neb 3 ML IH SCH ×7 (11:11→19:52)
--- NOTE | 2016-11-09 11:16 | Internal Med Progress Note ---
Date of Encounter: 11/09/16 Time of Encounter: 11:12 - Assessment and plan (1) Cholelithiasis Current Visit: Yes Status: Acute Assessment and plan: presented with chest pain that is worse after eating. Evaluated by Cardiology and cardiac etiology ruled out. RUQ US showed cholelithiasis without sonographic evidence of cholecystitis. Lipase, LFTs and bilirubin normal. General Surgery consulted. HIDA scan pending. Possible cholecystectomy this admission Qualifiers: Cholelithiasis location: gallbladder Cholecystitis presence: without cholecystitis Biliary obstruction: without biliary obstruction Qualified Code(s): K80.20 - Calculus of gallbladder without cholecystitis without obstruction (2) Chest pain Current Visit: No Status: Acute Assessment and plan: Presented with chest pain. Serial troponins negative. EKG revealed NSR with new T wave abnormality compared to EKG 06/01/16. Nuclear stress test on 06/02/16 and echo 06/01/16 revealed 60% EV with atypical septal motion consistent with bundle branch block. Evaluated by Cardiology and no further work-up indicated as not ACS and likely due to cholecystitis Qualifiers: Chest pain type: unspecified Qualified Code(s): R07.9 - Chest pain, unspecified (3) Hypertension Current Visit: Yes Status: Chronic Assessment and plan: per hx. BP controlled. Cont home BP medication. Monitor BP and titrate PRN. BP elevated on 11/09/16 (has not received BP medications as he is NPO). Add PRN hydralazine Qualifiers: Hypertension type: essential hypertension Qualified Code(s): I10 - Essential (primary) hypertension (4) Atrial fibrillation Current Visit: No Status: Chronic Assessment and plan: paroxysmal. EKG with NSR. CHADS-VASc Score 1. No anticoagulation at this time. Follows with [employer] Education Teacher at the [place]. Can follow-up as needed Qualifiers: Atrial fibrillation type: paroxysmal Qualified Code(s): I48.0 - Paroxysmal atrial fibrillation (5) Tobacco use disorder Current Visit: Yes Status: Chronic Assessment and plan: Current smoker, cessation advised (6) DVT prophylaxis Current Visit: No Status: Acute Assessment and plan: heparin - Subjective Interval history: Seen and examined at bedside, he just returned from HIDA scan. Says he has right quad ABD pain with palpation only. Denies CP, no SOB - Constitutional Vitals: Temp Pulse Resp BP Pulse Ox 98.1 F 54 20 167/86 95 11/09/16 07:52 11/09/16 07:52 11/09/16 07:52 11/09/16 07:52 11/09/16 07:52 General appearance: Present: cooperative, A&O X 3, pleasant, answers questions appropriately - Head Head exam: Present: atraumatic, normocephalic - Eye Eye exam: Present: PERRL, conjuntiva pink, sclera anicteric Pupils: Present: PERRL - Neck Neck exam general surgery: Present: supple, trachea midline. Absent: lymphadenopathy - Respiratory Respiratory exam: Present: CTAB. Absent: accessory muscle use, rales, rhonchi, wheezes - Cardiovascular Cardiovascular exam: Present: RRR, +S1, +S2. Absent: diastolic murmur, gallop, rubs, systolic murmur - GI/Abdominal GI/Abdominal exam: Present: normal bowel sounds, soft, no peritoneal signs. Absent: distended, tenderness - Extremities Exam Extremities exam: Present: warm, radial pulses palpable and symmetrical. Absent : calf tenderness, cyanotic, pedal edema - Neurological Exam Neurological exam: Present: CN II-XII intact, oriented X3, no focal deficits. Absent: pronater drift, facial droop, speech deficit - Skin Skin exam: Present: dry, intact Internal Medicine: Result - Labs CBC & Chem 7: 11/09/16 07:54 11/09/16 07:54 Labs: Short CBC 11/09/16 Range/Units 07:54 WBC 8.3 (4.3-11.1) K/mcL Hgb 16.2 (12.9-16.9) g/dL Hct 48.5 (37.5-50.1) % Plt Count 227 (140-400) K/mcL BMP 11/09/16 07:54 Sodium 139 Potassium 3.5 Chloride 102 Carbon Dioxide 29 BUN 12 Creatinine 1.14 Glucose 143 H Calcium 9.4 Liver Function 11/09/16 Range/Units 07:54 Total Bilirubin 0.5 (0.2-1.2) mg/dL AST 17 (5-34) Units/L ALT 22 (0-55) Units/L Alkaline Phosphatase 87 (38-126) Units/L Albumin 3.7 (3.5-5.0) g/dL - ABG Interpretation ABG results: PT/INR, D-dimer PT 10.0 Seconds (9.4-12.1) 11/09/16 07:54 - Impressions Impressions Abdomen Ultrasound 11/08/16 14:00 IMPRESSION: Cholelithiasis without sonographic evidence of cholecystitis. Hepatomegaly and diffuse hepatic steatosis. D/ / 11/08/2016 14:52:35 Edi Garcia MD / zach Interpreting Provider: Edi Garcia MD Bile Acid Absorption NM 11/08/16 16:21 IMPRESSION: 1. Cystic duct and common bile duct are patent. No evidence of acute cholecystitis. D/ / Gerardo Alcaraz MD / Gerardo Alcaraz MD Interpreting Provider: Gerardo Alcaraz MD Consult Discharge Plan - Plan Referrals: NONE,PCP [Primary Care Provider] -
[2016-11-09] MEDS ORDERED: cefOXitin 2,000 MG in D5% in Water (Mini-Bag+) 100 ML IVPB ONE (11:35)
[2016-11-09] MEDS ORDERED: *HR* FentaNYL (PF) 100 MCG/2 ML VIAL ONE ×3 (13:47→16:07)
[2016-11-09] MEDS ORDERED: *HR* Rocuronium Bromide 50 MG/5 ML VIAL ONE (13:47)
[2016-11-09] MEDS ORDERED: Dexamethasone 4 MG/ML VIAL ONE (13:47)
[2016-11-09] MEDS ORDERED: Ondansetron 4 MG/2 ML VIAL ONE (13:47)
[2016-11-09] MEDS ORDERED: Lidocaine -MPF 2% 2 ML VIAL ONE ×2 (13:47→15:29)
[2016-11-09] MEDS ORDERED: *HR* Midazolam HCl 2 MG/2 ML VIAL ONE ×2 (13:47→15:29)
[2016-11-09] MEDS ORDERED: *HR* Propofol 200 MG/20 ML VIAL IVP ONE ×3 (13:48→15:34)
--- NOTE | 2016-11-09 14:21 | Anesthesia Evaluation PreOp ---
Date of Encounter: 11/09/16 Time of Encounter: 14:19 - Past History Planned Operation: Laparoscopic Cholecystectomy Cardiac History: HTN, Arrhythmia (H/O A-Fib) Pulmonary History: Smoker (28 years) RN NEW GRADUATE History: Denies Any Significant HX Other Medical History: Denies Any Significant HX Anesthesia History: Past Anesthesia (no prior surgery) Alcohol Use: none Drug use: none Medications and Allergies Aspirin 81 mg PO DAILY #30 tab.chew 06/02/16 [Rx] 3 Allergy/AdvReac Type Severity Reaction Status Date / Time Iodinated Contrast- Oral and Allergy Rash Verified 03/05/15 23:53 IV Dye [Iodinated Contrast Media - IV Dye] Penicillins [PCN] Allergy Rash Verified 03/05/15 23:53 - Meds/Allergy Pre-op Review Medications Reviewed: Yes Allergies Reviewed: Yes Beta Blockers on Current Med List: No Anesthesia Results - Labs 11/09/16 07:54 11/09/16 07:54 - Imaging EKG: report reviewed (11/06/2016 SINUS RHYTHM POSSIBLE RIGHT VENTRICULAR CONDUCTION DELAY NONSPECIFIC T-WAVE ABNORMALITY) Additional studies: 06/02/2016 Stress Impression: Exercise ECG is negative for ischemia. The exercise capacity was good. Rashi protocol modified due to dyspnea. No chest pain reported. Gated EF = 63%. The left ventricle is dilated. LVEDV = 184 mL. Medium sized, mild intensity, fixed perfusion defect involving the inferior and apex segments. Wall motion appeared normal. These findings are most consistent with artifact. Perfusion imaging was negative for ischemia or infarct. 06/01/2016 Echo Impressions: LVEF 60%. Normal LV chamber size, wall thickness and function. Atypical septal motion consistent with bundle branch block. Normal right ventricular structure and function. No evidence of pulmonary hypertension. No significant valvular dysfunction. Anesthesia Exam Vital Signs/O2 Sat, Most Current Temp Pulse Resp BP Pulse Ox 98.1 F 60 18 124/73 92 11/09/16 11:55 11/09/16 11:55 11/09/16 11:55 11/09/16 11:55 11/09/16 11:55 Height: 6'4''/1.93 m Weight: 235 lbs/106.594 kg NPO (# of Hours): 8 Pain Scale: 0 Pain Scale Used: Numeric (1 - 10) - HEENT Pupil (Motor): EOMI Mallampati: II Teeth: Edentulous Oral Opening: Greater than 3 - RN NEW GRADUATE LOC: Oriented RN NEW GRADUATE Motor: Normal RUE, Normal LUE, Normal RLE, Normal LLE, Normal Face RN NEW GRADUATE Sensory: Normal: RUE, LUE, RLE, LLE, Face - Cardiac Rhythm: Regular Murmur: None - Pulmonary Breath Sounds: bilateral Clear Respiratory Effort: Symmetrical Anesthesia Assess/Plan ASA Score: 3 Modified Yamilet Scale for Level of Consciousness: Cooperative, oriented, and tranquil Anesthetic Plan: General Monitoring Plan: Standard Monitors Recovery Plan: PACU
[2016-11-09] MEDS ORDERED: Neostigmine Methylsulfate 3 MG/3 ML SYRINGE ONE (15:29)
[2016-11-09] MEDS ORDERED: *HR* Succinylcholine 200 MG/10 ML VIAL IVP ONE ×2 (15:29→15:34)
[2016-11-09] MEDS ORDERED: Clindamycin 900 MG/50 ML 900 MG/50 ML IV.SOLN IVPB ONE (16:04)
[2016-11-09] MEDS ORDERED: *HR* Meperidine 25 MG/ML SYRINGE IVP PRN (16:25)
[2016-11-09] MEDS ORDERED: Ondansetron 4 MG/2 ML VIAL IVP ONE (16:25)
[2016-11-09] MEDS ORDERED: *HR* Promethazine 25 MG/ML VIAL IVP PRN (16:25)
[2016-11-09] MEDS ORDERED: *HR* Labetalol 20 MG/4 ML SYRINGE IVP PRN (16:25)
[2016-11-09] MEDS ORDERED: *HR* Labetalol 100 MG/20 ML MDV ONE (16:29)
--- NOTE | 2016-11-09 16:43 | Operative Note ---
Date of procedure: 11/09/16 Pre-op diagnosis: symptomatic cholelithiasis Post-op diagnosis: same Procedure: Laparoscopic cholecystectomy Complications: none immediate Anesthesia: GETA, local Local Anesthetics: 0.5% Sensorcaine HCL SubQ (cc) (30) Surgeon: Darlene Tse Outside Parts Salesman: Yesenia Donahue Estimated blood loss (cc): 5 Specimen: gallbladder and contents Condition: stable Disposition: PACU Procedure in Detail: The patient was brought into the operating suite and placed supine on the operating table. Sign-in was performed and everyone was in agreement. Anesthesia was induced and patient was endotracheally intubated by anesthesia without incident and they also placed an OG tube. The abdomen was prepped and draped in the usual sterile fashion. A timeout was performed again everyone was in agreement. A supraumbilical incision was made through the skin into the subcutaneous tissue with an 11 blade. Towel clamps were placed on either side of the umbilicus for retraction. S retractors were used to dissect down to the anterior abdominal wall linea alba fascia. A Veress needle was placed through this incision and a water drop test confirmed placement and the abdomen was insufflated. The abdomen was entered with a 5 mm 0 degree laparoscope on a 5 mm X-joe trocar. The area and entry was visualized was no bleeding and no apparent bowel injury. A 5 mm subxiphoid port was placed under direct visualization after first incising the skin with an 11 blade. A right upper quadrant subcostal position midclavicular line 5 mm port was placed under direct visualization after first incising skin with 11 blade. The laparoscope was placed in this and we exchanged the supraumbilical port for a 12 mm port under direct visualization. The last 5 mm port was placed in the right upper quadrant subcostal position anterior axillary line after first incising the skin with an 11 blade. The patient was placed in steep reverse Trendelenburg left side down position. The dome of the gallbladder was grasped and retracted cephalad. Omental adhesions to the body and infundibulum of the gallbladder were taken down bluntly with the [place]. The infundibulum was grasped and retracted laterally. Using the [place] we dissected out the cystic duct and cystic artery. Two 5 mm hemoclips were placed distally on the cystic duct one proximally and it was transected with curved scissors. The cystic artery was doubly clipped proximally, once distally and transected with curved scissors. The gallbladder was removed off the cystic plate with the Bovie. Any bleeding points were stopped with the Bovie. The gallbladder was placed in a laparoscopic Endo Catch bag and removed via the supraumbilical incision site. The inferior edge of the liver was bluntly retracted cephalad and the cystic plate was copiously irrigated with sterile saline. There was no bleeding or apparent bile leak from the cystic plate and the clips on the cystic artery and duct were intact. All irrigation was suctioned free from the abdomen. All insufflation was suctioned free from the abdomen and the ports removed. The abdominal wall at the supraumbilical incision site was closed with a 0 Vicryl [id number] stitch. 30 mL of 0.5% Marcaine was injected subcutaneously at the 4 port sites. The skin at the three 5 mm port sites were closed with 4-0 Monocryl interrupted subcuticular stitches. The skin at the supraumbilical incision site was closed with a 4-0 Monocryl running subcuticular stitch. Steri -Strips were applied to all wounds. The patient was awoken in the operating suite having tolerated the procedure well and were taken to PACU in stable condition after all lap and ensuring counts were correct at the end of the case.
[2016-11-09] MEDS ORDERED: SUGAMMADEX SODIUM 500 MG/5 ML VIAL IV ONE (16:46)
[2016-11-09] MEDS: *HR* HYDROmorphone (PF) 1 MG/ML SYRINGE IVP PRN ×2 (17:05→17:10)
--- NOTE | 2016-11-09 17:41 | Anesthesia Evaluation Post Op ---
Date of Encounter: 11/09/16 Time of Encounter: 17:40 - Vital Signs Vital Signs: Vital Signs/O2 Sat, Most Current Temp Pulse Resp BP Pulse Ox 97.7 F 63 16 148/83 96 11/09/16 17:11/09/16 17:11/09/16 17:11/09/16 17:11/09/16 17:26 - Lungs Lungs: Clear Ascult./Percussion - Airway Airway: Non-obstructed - Cardiovascular Regular Rate - Mental Status Mental Status: Alert & Oriented, Answers Appropriately - Pain Pain Scale: 0 Pain Scale used: Numeric (1 - 10) - Nausea Vomiting Nausea Vomiting: Not Present - Hydration Hydration: Ice chips, Shahid catheter - Discharge PostOp Status: Transfer Patient to floor
[2016-11-09] MEDS ORDERED: *HR* OxyCODONE/APAP 5/325 TABLET PO PRN (18:10)
[2016-11-09] MEDS ORDERED: Ondansetron 4 MG/2 ML VIAL IVP PRN (18:10)
[2016-11-09] MEDS ORDERED: *HR* Morphine 2 MG/ML SYRINGE IVP PRN (18:10)
[2016-11-09] MEDS ORDERED: *HR* Metoprolol 5 MG/5 ML VIAL IVP PRN (18:10)
[2016-11-09] MEDS ORDERED: Naloxone 0.4 MG/ML INJ IVP PRN (18:10)
[2016-11-10] MEDS: Ipratropium/Albuterol Neb 3 ML IH SCH ×5 (00:17→11:24)
[2016-11-10] MEDS: *HR* Heparin 5,000 UNIT/ML VIAL SQ SCH (05:19)
[2016-11-10 05:24] LABS: Hematocrit 47.1 % (37.5-50.1); Hemoglobin 15.5 g/dL (12.9-16.9); Mean Corpuscular HGB Conc 32.9 g/dL (31.6-35.5); Mean Corpuscular Hemoglobin 28.7 pg (28.0-33.3); Mean Corpuscular Volume 87.1 fL (83.0-100.0); Mean Platelet Volume 10.3 fL (9.4-12.4); Platelet Count 237 K/mcL (140-400); Red Blood Count 5.41 M/mcL (4.19-5.50); Red Cell Distribution Width 12.7 % (11.5-14.5)
[2016-11-10 05:41] LABS: Chol/HDL Ratio 4.6 (0-4.9)
[2016-11-10 05:45] LABS: Alanine Aminotransferase 63 Units/L (0-55); Albumin 3.5 g/dL (3.5-5.0); Alkaline Phosphatase 77 Units/L (38-126); Aspartate Amino Transferase 51 Units/L (5-34); BUN/Creatinine Ratio 16 (6-26); Bilirubin,Total 0.7 mg/dL (0.2-1.2); Blood Urea Nitrogen 18 mg/dL (8-26); Calcium 9.2 mg/dL (8.6-10.8); Carbon Dioxide 23 mEq/L (19-29); Chloride 101 mEq/L (98-109); Globulin 3.4 g/dL (2.4-3.5); Glucose 157 mg/dL (70-99); Osmolality,Calculated 285 (280-300); Potassium 3.7 mEq/L (3.5-4.5); Sodium 135 mEq/L (136-145); Total Protein 6.9 g/dL (6.0-8.3); eGFR For African Americans > 60 (> 60); eGFR For Non-African Americans > 60 (> 60)
[2016-11-10] MEDS ORDERED: Famotidine 20 MG/2 ML VIAL IVP SCH (06:00)
[2016-11-10] MEDS ORDERED: Lisinopril-HCTZ 20-12.5mg TABLET PO SCH (09:00)
[2016-11-10] MEDS ORDERED: Nicotine 21 MG PATCH.TD24 TD SCH (09:00)
[2016-11-10 11:34] VITALS: BP 123/67
--- NOTE | 2016-11-10 11:41 | General Surgery Progress Note ---
Date of Encounter: 11/10/16 Time of Encounter: 11:30 - Assessment and Plan (1) Symptomatic cholelithiasis Current Visit: Yes Status: Acute Postoperative day #1 from laparoscopic cholecystectomy Regular diet Supportive care and pain control Okay for discharge from a surgical standpoint and follow-up in the office as scheduled on 11/23/2016 See surgical discharge instructions Subjective Patient reports: no new complaints, feels better, still having pain (post surgical), pain is less, tolerating a regular diet, voiding w/o difficulty, flatus, no bowel movement, afebrile Objective Vital Signs - Last 8 Hours Temp Pulse Resp BP Pulse Ox 11/10/16 11:24 16 95 11/10/16 10:00 98.7 F 88 16 123/67 94 11/10/16 08:08 16 93 11/10/16 06:34 98.2 F 80 15 154/73 11/10/16 04:09 98.3 F 68 16 136/74 93 11/10/16 03:50 16 94 Intake and Output 11/09/16 11/10/16 11/10/16 23:59 07:59 15:59 Intake Total 240 / 240 Output Total 5 / 5 250 / 250 Balance -5 / -5 -250 / -250 240 / 240 Intake: Oral 240 / 240 Output: Urine 0 / 0 250 / 250 Estimated Blood Loss 5 / 5 Other: Meal Breakfast Percent of Meal Consumed 80% Weight 107.32 kg Patient Weight 11/10/16 23:59 Weight 107.32 kg - General physical appearance well developed, well nourished, no distress - Eyes normal ocular movement - ENT normal mucosa, atraumatic, normocephalic - Neck Neck exam: trachea midline - Respiratory normal respiratory effort, clear to auscultation - Cardiovascular Cardiovascular exam: Present: RRR - Abdomen Abdomen: Present: bowel sounds present, soft, tender (Expected postoperative tenderness) - Incision Incision: Present: clean and dry, intact - Neurologic CN 2-12 grossly intact - Musculoskeletal normal gait, normal posture - Psychiatric oriented to time, oriented to person, oriented to place, speech is normal, memory intact - Labs 11/10/16 05:01 11/10/16 05:01 Diabetes panel 11/10/16 11/10/16 Range/Units 05:01 05:01 Sodium 135 L (136-145) mEq/L Potassium 3.7 (3.5-4.5) mEq/L Chloride 101 (98-109) mEq/L Carbon Dioxide 23 (19-29) mEq/L BUN 18 (8-26) mg/dL Creatinine 1.13 (0.72-1.25) mg/dL Glucose 157 H (70-99) mg/dL Calcium 9.2 (8.6-10.8) mg/dL AST 51 H (5-34) Units/L ALT 63 H (0-55) Units/L Alkaline Phosphatase 77 (38-126) Units/L Albumin 3.5 (3.5-5.0) g/dL Triglycerides 82 (< 150) mg/dL HDL Cholesterol 35 L (40-59) mg/dL Calcium panel 11/10/16 Range/Units 05:01 Calcium 9.2 (8.6-10.8) mg/dL Albumin 3.5 (3.5-5.0) g/dL Pituitary panel 11/10/16 Range/Units 05:01 Sodium 135 L (136-145) mEq/L Potassium 3.7 (3.5-4.5) mEq/L Chloride 101 (98-109) mEq/L Carbon Dioxide 23 (19-29) mEq/L BUN 18 (8-26) mg/dL Creatinine 1.13 (0.72-1.25) mg/dL Glucose 157 H (70-99) mg/dL Calcium 9.2 (8.6-10.8) mg/dL Adrenal panel 11/10/16 Range/Units 05:01 Sodium 135 L (136-145) mEq/L Potassium 3.7 (3.5-4.5) mEq/L Chloride 101 (98-109) mEq/L Carbon Dioxide 23 (19-29) mEq/L BUN 18 (8-26) mg/dL Creatinine 1.13 (0.72-1.25) mg/dL Glucose 157 H (70-99) mg/dL Calcium 9.2 (8.6-10.8) mg/dL Total Bilirubin 0.7 (0.2-1.2) mg/dL AST 51 H (5-34) Units/L ALT 63 H (0-55) Units/L Alkaline Phosphatase 77 (38-126) Units/L Albumin 3.5 (3.5-5.0) g/dL - VTE Documentation of Mechanical Device: Intermittent pneumatic compression device Consult Discharge Plan - Plan Additional Instructions: #1 may shower, no tub bath for 2 weeks #2 wash incisions with soap and water and pat dry daily #3 no lifting, pushing, pulling more than 15 pounds for the next 2 weeks #4 no driving until off narcotics for 24 hours and able to safely react in the car #5 may climb stairs Referrals: NONE,PCP [Primary Care Provider] - Leandra Story, PRINCIPAL ENGINEER [Advanced Practice Nurse] - 11/23/16 1:30 pm (surgery follow -up) Prescriptions: Ibuprofen [Motrin] 600 mg PO Q8HR PRN #50 tab PRN Reason: Pain Docusate [Colace] 100 mg PO BID #30 capsule Oxycodone HCl/Acetaminophen [Percocet 5-325 mg Tablet] 1 each PO Q4H PRN #30 tablet PRN Reason: Pain - Attending Attestation For this encounter, I have reviewed the ELECTRICAL DEVELOPMENT ENGINEER or PA documentation, treatment plan, and medical decision making; and I have had face to face time with this patient.
--- NOTE | 2016-11-10 12:04 | Discharge Summary ---
Date of Encounter: 11/10/16 Time of Encounter: 11:58 - Discharge Diagnosis (1) Cholelithiasis Priority: Primary Status: Chronic Comments: Quirino Simental is a 44 y/o male with PMH atrial fibrillation, HTN and tobacco use who presented to [facility] on 11/10/2016 with complaints of chest pain. Cardiac etiology without any was found to have cholelithasis. He underwent laparoscopic cholecystectomy on 11/09/16. He was discharged home in stable condition. Symptomatic cholelithiasis: presented with chest pain that is worse after eating. Evaluated by Cardiology and cardiac etiology ruled out. RUQ US showed c holelithiasis without sonographic evidence of cholecystitis. Lipase, LFTs and bilirubin normal. Evaluated by General Surgery who noted symptomatic cholelithiasis. S/p laparoscopic cholecystectomy on 11/09/[address] Tse. ABD pain controlled and tolerating regular diet at discharge. WBC 13 K, suspect reactive with recent surgery. No evidence of infection. Recommend repeat CBC in 5-7 days with PCP. Will need to follow-up with General Surgery on 11/23/2016. Qualifiers: Cholelithiasis location: gallbladder Cholecystitis presence: without cholecystitis Biliary obstruction: without biliary obstruction Qualified Code(s): K80.20 - Calculus of gallbladder without cholecystitis without obstruction (2) Chest pain Priority: Primary Status: Acute Comments: Presented with chest pain. Serial troponins negative. EKG revealed NSR with new T wave abnormality compared to EKG 06/01/16. Nuclear stress test on 06/02/16 and echo 06/01/16 revealed 60% EV with atypical septal motion consistent with bundle branch block. Evaluated by Cardiology and no further work-up indicated as not ACS and likely due to cholecystitis. No further workup needed at this time. Can follow up outpatient with established painter mirror at [place] Qualifiers: Chest pain type: unspecified Qualified Code(s): R07.9 - Chest pain, unspecified (3) Hypertension Priority: Primary Status: Acute Comments: per hx. BP controlled. Cont home BP medication. Qualifiers: Hypertension type: essential hypertension Qualified Code(s): I10 - Essential (primary) hypertension (4) Atrial fibrillation Priority: Primary Status: Chronic Comments: paroxysmal. EKG with NSR. CHADS-VASc Score 1. No anticoagulation at this time. Follows with [facility] Virus Serum Inspector at the [place]. Can follow-up as needed Qualifiers: Atrial fibrillation type: paroxysmal Qualified Code(s): I48.0 - Paroxysmal atrial fibrillation (5) Hyperlipemia Priority: Primary Status: Acute Comments: LDL 111; defer statin initiation to PCP. Qualifiers: Hyperlipidemia type: pure hypercholesterolemia Qualified Code(s): E78.00 - Pure hypercholesterolemia, unspecified; E78.0 - Pure hypercholesterolemia (6) Tobacco use disorder Priority: Primary Status: Chronic Comments: Current smoker, cessation advised - Discharge Medications Prescriptions: Ibuprofen [Motrin] 600 mg PO Q8HR PRN #50 tab PRN Reason: Pain Docusate [Colace] 100 mg PO BID #30 capsule Oxycodone HCl/Acetaminophen [Percocet 5-325 mg Tablet] 1 each PO Q4H PRN #30 tablet PRN Reason: Pain Home Medications: Aspirin 81 mg PO DAILY #30 tab.chew 06/02/16 [Rx] Docusate [Colace] 100 mg PO BID #30 capsule 11/10/16 [Rx] Ibuprofen [Motrin] 600 mg PO Q8HR PRN #50 tab 11/10/16 [Rx] Oxycodone HCl/Acetaminophen [Percocet 5-325 mg Tablet] 1 each PO Q4H PRN #30 tablet 11/10/16 [Rx] Allergies/Adverse Reactions: 3 Allergy/AdvReac Type Severity Reaction Status Date / Time Iodinated Contrast- Oral and Allergy Rash Verified 03/05/15 23:53 IV Dye [Iodinated Contrast Media - IV Dye] Penicillins [PCN] Allergy Rash Verified 03/05/15 23:53 Procedures/tests Complete & Pending: Procedures Performed prior 72 hours Category Date Time Status NM hepatobiliary [NM] Stat Exams 11/08/16 16:21 Completed US abdomen limited [US] Stat Exams 11/08/16 14:00 Completed Date of admission: 11/06/16 19:47 Primary care physician: PCP NONE Consults: 11/07/16 14:54 Consult to Cardiology [CONS] Routine Comment: Consulting Provider: Ted Arce Reason for Consult: chest pain Call Completed: Yes 11/08/16 16:19 Consult to Surgery [CONS] Routine Consulting Provider: Darlene Tse Reason for Consult: cholecystitis Call Completed: Yes Discharging clinician: Brigid Rojas Anticipated date of discharge: 11/10/16 - Patient Status Disposition: Home, Self-Care Condition: Good Functional capacity at discharge: independent ambulation Overall status at discharge: patient is progressing back to baseline - Discharge Instructions Follow Up With: Leandra Story CNP [Advanced Practice Nurse] - 11/23/16 1:30 pm (surgery follow -up) NONE,PCP [Primary Care Provider] - Additional Instructions: #1 may shower, no tub bath for 2 weeks #2 wash incisions with soap and water and pat dry daily #3 no lifting, pushing, pulling more than 15 pounds for the next 2 weeks #4 no driving until off narcotics for 24 hours and able to safely react in the car #5 may climb stairs - Diet and Activity Activity: ambulate only with your walker Diet: advance to your usual diet Interval History: Seen and examined at bedside; he has a little ABD pain but says pain medicine is helping. He is tolerating regular diet and wants to go home. He was cleared by General Surgery an dis medically stable for discharge Hospital course: Mr. Simental is a 51 year old male - Time Spent with Patient Total time spent providing and/or coordinating discharge services: Greater than 30 minutes (36 minutes spent on discharge) - Constitutional Vitals: Temp Pulse Resp BP Pulse Ox 98.7 F 88 16 123/67 95 11/10/16 10:00 11/10/16 10:00 11/10/16 11:24 11/10/16 10:00 11/10/16 11:24 General appearance: Present: cooperative, A&O X 3, pleasant, answers questions appropriately - Head Head exam: Present: atraumatic, normocephalic - Eye Eye exam: Present: PERRL, conjuntiva pink, sclera anicteric Pupils: Present: PERRL - Neck Neck exam general surgery: Present: supple, trachea midline. Absent: lymphadenopathy - Respiratory Respiratory exam: Present: CTAB. Absent: accessory muscle use, rales, rhonchi, wheezes - Cardiovascular Cardiovascular exam: Present: RRR, +S1, +S2. Absent: diastolic murmur, gallop, rubs, systolic murmur - GI/Abdominal GI/Abdominal exam: Present: normal bowel sounds, soft, no peritoneal signs. Absent: distended, tenderness Additional comments: S/p lap sites - Extremities Exam Extremities exam: Present: warm, radial pulses palpable and symmetrical. Absent : calf tenderness, cyanotic, pedal edema - Neurological Exam Neurological exam: Present: CN II-XII intact, oriented X3, no focal deficits. Absent: pronater drift, facial droop, speech deficit - Skin Skin exam: Present: dry, intact - VTE Documentation of Mechanical Device: Intermittent pneumatic compression device
== END 2016-11-10 13:14 | disposition home or self-care (01) ==
LOC: 3BNU
PROVIDERS: ADMIT Internal Medicine; ATTEND Registered Nurse

== ENCOUNTER 2017-01-29 14:45 | Inpatient (IN) ==
--- NOTE | 2017-01-29 15:05 | Emergency Department Note ---
Disposition Clinical Impression: Atrial fibrillation with RVR, Hypokalemia, Light-headed feeling Chest pain Qualifiers: Chest pain type: unspecified Qualified Code(s): R07.9 - Chest pain, unspecified Disposition: Admitted As Inpatient Condition: Undetermined Referrals: NONE,PCP [Primary Care Provider] - Forms: ED Satisfaction Letter Time of Disposition: 16:22 Dizziness HPI - General Chief Complaint: ED Dizziness Stated Complaint: dizzy Time Seen by Provider: 01/29/17 14:53 Source: patient Mode of arrival: ambulatory Limitations: no limitations Nursing Notes Reviewed: Yes Vital Signs Reviewed: Yes - History of Present Illness HPI Narrative: 51-year-old male with history of paroxysmal A. fib on no anticoagulation arrives here to emergency department complaining of intermittent episodes of lightheadedness. The patient states it is worse when he first gets up in the morning and when he leans over. The patient admits to intermittent episodes of chest pain and shortness of breath associated with it. He denies any unilateral leg swelling, recent immobilizations, history of DVT or PE. He denies any other complaints at this time. He denies any previous history of UT. The patient does have a history of hypertension. The patient is a smoker as well. The patient states that he has been taking his diltiazem by mouth as prescribed. He denies any other complaints at this time. Pt Subjective Complaint: lightheadedness Onset (ago): week(s) (1) Timing: intermittent Description: lightheadedness History of similar episodes: Yes History of trauma: No Severity: mild Improves with: nothing Worsens with: exertion Associated symptoms: Reports: chest pain, shortness of breath - Related Data Home Medications Medication Instructions Recorded Confirmed dilTIAZem HCl [Diltiazem ER] 240 mg PO DAILY 01/29/17 01/29/17 Previous Rx's Medication Instructions Recorded Aspirin 81 mg PO DAILY #30 tab.chew 06/02/16 Allergies Allergy/AdvReac Type Severity Reaction Status Date / Time Iodinated Contrast- Oral and Allergy Rash Verified 01/29/17 14:47 IV Dye [Iodinated Contrast Media - IV Dye] Penicillins [PCN] Allergy Rash Verified 01/29/17 14:47 All systems ED: reviewed and negative except as stated. Constitutional: Denies: fever, chills, weakness ENT ED: Denies: congestion Cardiovascular: Reports: chest pain, palpitations, dyspnea on exertion. Denies : orthopnea, edema, syncope Respiratory: Reports: dyspnea. Denies: cough, wheezes Gastrointestinal: Denies: abdominal pain, nausea, vomiting Genitourinary: Denies: urgency, dysuria Musculoskeletal: Denies: back pain, neck pain Integumentary: Denies: rash Neurological: Denies: headache, weakness, confusion, vertigo Past Medical History - Past Medical History Attestation: Yes The following information was validated with the patient. Source: patient Medical history: Reports: atrial fibrillation, hypertension, other Surgical history: Reports: other Psychiatric history: Reports: no psych history - Social History Smoking Status: Current every day smoker Smokeless Tobacco Status: No Alcohol use: Reports: none Drug use: Reports: none Physical Exam - General Limitations: no limitations General appearance: alert, in no apparent distress - Head Head exam: atraumatic, normocephalic, normal inspection - Eye Eye exam: Present: normal appearance, PERRL, EOMI - ENT ENT exam: normal exam, normal oropharynx, mucous membranes moist - Neck Neck exam: Present: normal inspection, full ROM, trachea midline - Chest Chest inspection: Present: normal inspection, symmetric chest wall rise - Respiratory Respiratory exam: Present: normal lung sounds bilaterally - Cardiovascular Cardiovascular exam: Present: tachycardia, irregular rhythm, normal heart sounds - Abdominal Exam Abdominal exam: Present: soft, Non-Tender. Absent: tenderness, distention, guarding, rebound, rigidity - Extremities Exam Extremities exam: Present: normal inspection, full ROM. Absent: tenderness, pedal edema - Neurological Exam Neurological exam: Present: alert, oriented X3 - Skin Skin exam: Present: warm, dry, intact, normal color Course - Consultations Consultation #1: I spoke to Dr. Lawler, who had no further recommendations. Will see the patient in consult. Time: 16:22 Vital Signs Temperature 98.3 F 01/29/17 14:47 Pulse Rate 90 01/29/17 14:47 Respiratory Rate 20 01/29/17 14:47 Blood Pressure 168/124 01/29/17 14:47 O2 Sat by Pulse Oximetry 96 01/29/17 14:47 Temperature 98.3 F 01/29/17 14:47 Pulse Rate 106 01/29/17 15:22 Respiratory Rate 16 01/29/17 15:22 Blood Pressure 160/86 01/29/17 15:22 O2 Sat by Pulse Oximetry 96 01/29/17 15:22 Oxygen Delivery Oxygen Delivery Room Air Dizziness - MDM Narrative Medical decision making narrative: Workup here in the emergency department demonstrates no acute findings. After receiving the Cardizem bolus of the patient's heart rate dropped into the low 100s. He is resting comfortably at this time. The patient was given a Lovenox injection. We will admit the patient to the hospitalist at this time. Accepted by Dr. Lui. - Medical Records Medical records reviewed: Yes I reviewed the patient's medical records. - Lab Data Lab results reviewed: Yes I reviewed the patient's lab results. Result diagrams: 01/29/17 15:06 01/29/17 15:06 Lab Results 01/29/17 01/29/17 01/29/17 Range/Units 15:06 15:06 15:06 WBC 8.8 (4.3-11.1) K/mcL RBC 5.53 H (4.19-5.50) M/mcL Hgb 16.1 (12.9-16.9) g/dL Hct 47.4 (37.5-50.1) % MCV 85.7 (83.0-100.0) fL MCH 29.1 (28.0-33.3) pg MCHC 34.0 (31.6-35.5) g/dL RDW 12.9 (11.5-14.5) % Plt Count 181 (140-400) K/mcL MPV 9.9 (9.4-12.4) fL Immature Gran % 0.5 (0-4) % Seg Neutrophils % 67.5 % Lymphocytes % 21.9 % Monocytes % 6.8 % Eosinophils % 2.7 % Basophils % 0.6 % Neutrophils # 5.9 (1.6-8.9) K/mcL Lymphocytes # 1.9 (0.6-4.6) K/mcL Monocytes # 0.6 (0.0-1.3) K/mcL Eosinophils # 0.2 (0.0-0.6) K/mcL Basophils # 0.1 (0.0-0.2) K/mcL Sodium 138 (136-145) mEq/L Potassium 3.2 L (3.5-4.5) mEq/L Chloride 105 (98-109) mEq/L Carbon Dioxide 24 (19-29) mEq/L BUN 11 (8-26) mg/dL Creatinine 1.03 (0.72-1.25) mg/dL Est GFR ( Amer) > 60 (> 60) Est GFR (Non-Af Amer) > 60 (> 60) BUN/Creatinine Ratio 11 (6-26) Glucose 178 H (70-99) mg/dL Calculated Osmolality 290 (280-300) Calcium 9.1 (8.6-10.8) mg/dL Troponin I 0.01 (0-0.03) ng/mL TSH 1.315 (0.350-4.840) mcIU/mL - Radiology Data Radiology results reviewed: Yes I reviewed the patient's radiology results. - EKG Data EKG attestation: Yes I reviewed and interpreted this EKG. EKG results narrative: Heart rate 123 bpm. QTc 397 ms. Atrial Fibrillation with RVR.[address] elevation or ST depression noted. New A. fib with RVR from previous EKG on . Critical Care Time Critical Care Time: Yes Total Critical Care Time: 30 Attestation: The high probability of a clinically significant, sudden or life threatening deterioration of the [CV] system(s) required my full and direct attention, intervention and personal management. The aggregate critical care time was [30] minutes. This time is in addition to time spent performing reported procedures but includes the following: [x] Data Review and interpretation [x] Patient assessment and monitoring of vital signs [x] Documentation [x] Medication orders and management Attestation Statement - Attestation Attestation: I examined this patient and my medical decision-making was reviewed with the Resident Physician, Dr. Bowman. I agree with the documented findings, disposition and treatment plan as described except to the extent set forth below. Patient is a 51-year-old white male with a history of atrial fibrillation, on diltiazem at home but does not take Coumadin or any anticoagulants who presents to the emergency department with complaints of palpitations and lightheadedness that it been intermittent since last night. Patient states his dizziness has become more sustained in severe today which brought into the emergency department today. Patient was placed on environmental monitoring specialist and found to be in atrial fibrillation with RVR. Heart rate would range between 96 and 140 bpm with an elevated blood pressure. He said he states he has been compliant with his medication and has not been ill or having difficulty tolerating his meds. Patient denies any chest pain pressure or heaviness, no diaphoresis, no abdominal pain or flank pain, no shortness of breath. I agree with patient's physical exam findings as documented. Patient was tachycardic and hypertensive on arrival. EKG shows atrial fibrillation with no acute ischemic changes. Chest x-ray is within normal limits. Surgical and sent and patient with mild hypokalemia at 3.2, will order replacement in the ED. Is negative, patient had aspirin administered as well as a Cardizem bolus and drip with successful rate control. We will repeat EKG. Patient resting comfortably with improvement in heart rate and pressure. Discussed with the hospitalist who accepted patient for admission for further evaluation and management.
[2017-01-29 15:15] LABS: Basophils # 0.1 K/mcL (0.0-0.2); Basophils % 0.6 %; Eosinophils # 0.2 K/mcL (0.0-0.6); Eosinophils % 2.7 %; Hematocrit 47.4 % (37.5-50.1); Hemoglobin 16.1 g/dL (12.9-16.9); Immature Granulocytes % 0.5 % (0-4); Lymphocytes # 1.9 K/mcL (0.6-4.6); Lymphocytes % 21.9 %; Mean Corpuscular Hemoglobin 29.1 pg (28.0-33.3); Mean Corpuscular Volume 85.7 fL (83.0-100.0); Mean Platelet Volume 9.9 fL (9.4-12.4); Monocytes # 0.6 K/mcL (0.0-1.3); Monocytes % 6.8 %; Neutrophils # 5.9 K/mcL (1.6-8.9); Platelet Count 181 K/mcL (140-400); Red Blood Count 5.53 M/mcL (4.19-5.50); Red Cell Distribution Width 12.9 % (11.5-14.5); Segmented Neutrophils % 67.5 %
[2017-01-29 15:26] LABS: BUN/Creatinine Ratio 11 (6-26); Blood Urea Nitrogen 11 mg/dL (8-26); Calcium 9.1 mg/dL (8.6-10.8); Carbon Dioxide 24 mEq/L (19-29); Chloride 105 mEq/L (98-109); Glucose 178 mg/dL (70-99); Osmolality,Calculated 290 (280-300); Potassium 3.2 mEq/L (3.5-4.5); Sodium 138 mEq/L (136-145); eGFR For African Americans > 60 (> 60); eGFR For Non-African Americans > 60 (> 60)
[2017-01-29] MEDS: dilTIAZem HCl 100 MG in D5% in Water 50 ML IVC SCH ×2 (15:42→23:26)
[2017-01-29] MEDS ORDERED: Aspirin 81 MG TAB.CHEW PO ONE (15:46)
[2017-01-29] MEDS ORDERED: *HR* Enoxaparin 120 MG/0.8 ML SYRINGE SQ STA (15:56)
[2017-01-29 16:01] LABS: Thyroid Stimulating Hormone 1.315 mcIU/mL (0.350-4.840)
[2017-01-29] MEDS ORDERED: Ondansetron ODT 4 MG TAB.RAPDIS SL PRN (16:46)
[2017-01-29] MEDS ORDERED: Acetaminophen 325 MG TABLET PO PRN (16:46)
[2017-01-29] MEDS ORDERED: Naloxone 0.4 MG/ML INJ IVP PRN (16:46)
--- NOTE | 2017-01-29 16:53 | Internal Med History&Physical ---
Date of Encounter: 01/29/17 Time of Encounter: 16:51 Assessment and Plan (1) Atrial fibrillation with RVR Current visit: Yes Status: Acute Has known A. fib; not on anticoagulation. Follow[facility] with [facility]. Presented to outside hospital approximately one week ago with similar symptoms; was found to be in A. fib with RVR at that time. Converted with Cardizem drip: Was not started on anticoagulation. Now with recurrent palpitations. Admission EKG with A. fib RVR; heart rate 126. Received Cardizem bolus in ED with improvement in heart rate. Also received therapeutic dose Lovenox in ED. Continue Cardizem drip. Hold home CCB. Cardiology consulted. Echo pending. Defer further anticoagulation to cardiology (2) Hypokalemia Current visit: Yes Status: Acute K 3.2; replaced in ED. Check mag. Monitor repeat BMP. (3) Hypertension Current visit: No Status: Acute per hx. heart rate variable but except. Holding home CCB. Continue diltiazem drip. Monitor BP and titrate PRN Qualifiers: Hypertension type: essential hypertension Qualified Code(s): I10 - Essential (primary) hypertension (4) DVT prophylaxis Current visit: No Status: Acute lovenox Internal Medicine - H&P: HPI Chief complaint: fast heart rate Admitted From: Home Plans for Post Hospital Care: Home History of present illness: Mr. Simental is a 51 year old male with past medical history hypertension and A. fib who presented to [facility] on 01/29/2017 with complaints of palpitations. He was found to be in A. fib with RVR. He was given bolus of Cardizem and ED and started on Cardizem drip and admitted for further workup and treatment. Information obtained from chart review and patient report. Patient has known history of A. fib. Says he was seen at outside hospital proximally 1 week ago for similar complaints. Was found to be in A. fib with RVR at that time. He apparently was started on a Cardizem drip and he converted. He does not believe he saw a dean of admissions during the hospitalization and was not started on anticoagulation. Says he feels a little bit better time of my exam. Still with palpitations but improved. No shortness of breath or chest pain. He does feel like he is getting a cold. Past Med Surg Social Fam HX - Past Medical History Medical history: atrial fibrillation, hypertension, other Psychiatric history: no psych history - Past Surgical History Surgical History: other - Social History Smoking Status: Current every day smoker Smokeless Tobacco Status: No Alcohol use: none Drug use: none - Family History Father Living Status: Still Living Hx Family Cardiac Disorders: Yes ([place] and PACER) Hx Family Endocrine Disorder: Yes (diabetes) Mother Living Status: Hx Family Cardiac Disorders: Yes (CHF) Hx Family Cancer: Yes Hx Family Endocrine Disorder: Yes (diabetes) Internal Medicine - H&P: Meds Aspirin 81 mg PO DAILY #30 tab.chew 06/02/16 [Rx] dilTIAZem HCl [Diltiazem ER] 240 mg PO DAILY 01/29/17 [History] 3 Allergy/AdvReac Type Severity Reaction Status Date / Time Iodinated Contrast- Oral and Allergy Rash Verified 01/29/17 14:47 IV Dye [Iodinated Contrast Media - IV Dye] Penicillins [PCN] Allergy Rash Verified 01/29/17 14:47 All Systems PM: A 10-system review of systems was performed and is negative for pertinent findings except as documented above in the HPI. - Constitutional Constitutional: no chills, no fever(s), no night sweats - EENT Eyes: no change in vision, no discharge, no pain, no photophobia Ears: no ear discharge, no ear pain, no tinnitus Nose, mouth and throat: no dysphagia, no nasal discharge, no neck pain, no sore throat - Cardiovascular Cardiovascular ROS IM: irregular heart rhythm, palpitations, no chest pain, no diaphoresis, no dyspnea, no lightheadedness, no syncope - Respiratory Respiratory: chest congestion, no cough, no dyspnea, no wheezing, no excessive phlegm production - Gastrointestinal Gastrointestinal: no abdominal pain, no diarrhea, no hematemesis, no hematochezia, no melena, no nausea, no vomiting - Musculoskeletal Musculoskeletal ROS IM: no numbness, no tingling - Integumentary Integumentary IM: no rash, no unusual bruising - Neurological Neurological ROS: no confusion, no convulsions, no focal weakness, no numbness, no tingling, no tremor(s) - Hematologic/Lymphatic Hematologic/Lymphatic: no easy bruising - Constitutional Vitals: Temp Pulse Resp BP Pulse Ox 98.3 F 121 14 149/88 97 12/16/17 14:47 01/29/17 16:34 01/29/17 16:34 01/29/17 16:34 01/29/17 16:34 - Head Head exam: Present: atraumatic, normocephalic - Eye Eye exam: Present: PERRL, conjuntiva pink, sclera anicteric Pupils: Present: PERRL - Neck Neck exam general surgery: Present: supple, trachea midline. Absent: lymphadenopathy - Respiratory Respiratory exam: Present: CTAB. Absent: accessory muscle use, rales, rhonchi, wheezes - Cardiovascular Cardiovascular exam: Present: irregular rhythm, +S1, +S2, tachycardia. Absent: diastolic murmur, gallop, rubs, systolic murmur - GI/Abdominal GI/Abdominal exam: Present: normal bowel sounds, soft, no peritoneal signs. Absent: distended, tenderness - Extremities Exam Extremities exam: Present: warm, radial pulses palpable and symmetrical. Absent : calf tenderness, cyanotic, pedal edema - Neurological Exam Neurological exam: Present: CN II-XII intact, oriented X3, no focal deficits. Absent: pronater drift, facial droop, speech deficit - Skin Skin exam: Present: dry, intact Internal Med - H&P Results - Labs CBC & Chem 7: 01/29/17 15:06 01/29/17 15:06
[2017-01-29] MEDS: 0.9 % Sodium Chloride 1,000 ML IVC SCH (18:28)
[2017-01-29] MEDS: Ipratropium/Albuterol Neb 3 ML IH SCH ×2 (20:58→23:37)
[2017-01-30 03:32] LABS: Hematocrit 43.6 % (37.5-50.1); Hemoglobin 14.7 g/dL (12.9-16.9); Immature Platelets 5.9 % (1.1-6.1); Mean Corpuscular HGB Conc 33.7 g/dL (31.6-35.5); Mean Corpuscular Hemoglobin 29.5 pg (28.0-33.3); Mean Corpuscular Volume 87.6 fL (83.0-100.0); Mean Platelet Volume 10.7 fL (9.4-12.4); Red Blood Count 4.98 M/mcL (4.19-5.50); Red Cell Distribution Width 13.3 % (11.5-14.5)
[2017-01-30 03:44] LABS: BUN/Creatinine Ratio 11 (6-26); Blood Urea Nitrogen 11 mg/dL (8-26); Calcium 8.5 mg/dL (8.6-10.8); Carbon Dioxide 26 mEq/L (19-29); Chloride 104 mEq/L (98-109); Glucose 106 mg/dL (70-99); Osmolality,Calculated 284 (280-300); Potassium 3.4 mEq/L (3.5-4.5); Sodium 137 mEq/L (136-145); eGFR For African Americans > 60 (> 60); eGFR For Non-African Americans > 60 (> 60)
[2017-01-30] MEDS: Ipratropium/Albuterol Neb 3 ML IH SCH ×6 (04:40→23:14)
[2017-01-30] MEDS ORDERED: *HR* Enoxaparin 120 MG/0.8 ML SYRINGE SQ SCH (09:11)
[2017-01-30] MEDS: Aspirin 81 MG TAB.CHEW PO SCH (09:57)
[2017-01-30] MEDS: 0.9 % Sodium Chloride 1,000 ML IVC SCH (10:05)
--- NOTE | 2017-01-30 11:00 | Cardiology Consult Note ---
Date of Encounter: 01/30/17 Time of Encounter: 10:57 Assessment and Plan (1) Atrial fibrillation Current Visit: No Status: Chronic Proximal atrial fibrillation. Symptoms seem to correlate with poorly controlled hypertension. Prior stress test negative for ischemia, LV function normal. We discussed options, including rate versus rhythm control. Patient interested and a rhythm control strategy. Recommend start sotalol 80 mg twice daily. CHADS-VASc 1-2 (HTN, possible DM per ). Risks, benefits, and alternatives to anticoagulation to reduce the risk of embolic events discussed. Patient agreeable to start anticoagulation. Qualifiers: Atrial fibrillation type: paroxysmal Qualified Code(s): I48.0 - Paroxysmal atrial fibrillation (2) Hypertension Current Visit: No Status: Acute Qualifiers: Hypertension type: essential hypertension Qualified Code(s): I10 - Essential (primary) hypertension Discussion w patient/family: The assessment and plan as outlined above was discussed with the patient and/or family members who expressed understanding and agreement. All questions were answered. Thank you for involving us in the care of your patient. Please call with any questions. History of Present Illness Consult date: 01/30/17 Requesting physician: Clarice Lui Consult reason: AF Chief complaint: Palpitations History of present illness: Mr. Simental is a 51 year old male with a history of essential HTN and possible diabetes. Reports at least 3-4 episodes of atrial fibrillation over the last few years. Recently seen at [facility]. Patient states he has not seen a globe m[facility]. Primary care physician is at the [facility]. Reports sudden onset of palpitations, persistent. ECG, telemetry demonstrated atrial fibrillation with RVR. Currently, patient seems to be better rate controlled. He denies any known history of CAD. He is never required a cardiac catheterization. Stress test 05/2016 negative for ischemia or prior infarct. TTE 05/2016: LVEF 60%. No significant valve disease. Past Med Surg Social Fam HX - Past Medical History Medical history: atrial fibrillation, hypertension, other Psychiatric history: no psych history - Past Surgical History Surgical History: other - Social History Smoking Status: Current every day smoker Smokeless Tobacco Status: No Alcohol use: none Drug use: none - Family History Father Living Status: Still Living Hx Family Cardiac Disorders: Yes ([place] and PACER) Hx Family Endocrine Disorder: Yes (diabetes) Mother Living Status: Hx Family Cardiac Disorders: Yes (CHF) Hx Family Cancer: Yes Hx Family Endocrine Disorder: Yes (diabetes) Medications and Allergies Aspirin 81 mg PO DAILY #30 tab.chew 06/02/16 [Rx] dilTIAZem HCl [Diltiazem ER] 240 mg PO DAILY 01/29/17 [History] 3 Allergy/AdvReac Type Severity Reaction Status Date / Time Iodinated Contrast- Oral and Allergy Rash Verified 01/29/17 14:47 IV Dye [Iodinated Contrast Media - IV Dye] Penicillins [PCN] Allergy Rash Verified 01/29/17 14:47 All Systems Review: A 10-system review of systems was performed and is negative for pertinent findings except as documented above in the HPI. - Cardiovascular Cardiovascular: as per HPI, palpitations, rapid heart rate Physical Examination Vital Signs, Last 4 Hours Temp Pulse Resp BP Pulse Ox 01/30/17 08:10 20 92 01/30/17 07:17 98.2 F 80 18 139/99 97 General: Conversant, No Apparent Distress HEENT: Atraumatic, Normocephaly, Mucus Membranes Moist Neck: No JVD Cardiac: Normal S1 and S2, No Murmur, Other (Irregular rate and rhythm.) Lungs: Normal Breath Sounds, No Wheeze, Rales, Rhonchi Neuro: Alert and responsive, No focal deficits noted Abdomen: Soft, Non-Tender Skin: No rashes noted on visualized skin Musculoskeletal: No Chest Wall Tenderness Extremities: No Clubbing, No Cyanosis, No Edema Results 01/30/17 03:13 01/30/17 03:13 Lab Results 01/29/17 01/30/17 01/30/17 20:51 03:13 03:13 WBC 8.5 Hgb 14.7 Hct 43.6 Plt Count 174 Sodium Potassium Chloride Carbon Dioxide BUN Creatinine Glucose Calcium Magnesium Troponin I 0.01 0.01 B-Natriuretic Peptide 01/30/17 01/30/17 01/30/17 03:13 03:13 08:40 WBC Hgb Hct Plt Count Sodium 137 Potassium 3.4 L Chloride 104 Carbon Dioxide 26 BUN 11 Creatinine 1.01 Glucose 106 H Calcium 8.5 L Magnesium 2.0 Troponin I 0.01 B-Natriuretic Peptide 109 H - Imaging and Cardiology Stress Test: report reviewed Echo: report reviewed - EKG Interpretation EKG results cardiology: personally reviewed Consult Discharge Plan - Plan Referrals: NONE,PCP [Primary Care Provider] -
[2017-01-30] MEDS: Diltiazem CD (24hr) 240 MG CAPSULE PO SCH (11:53)
--- NOTE | 2017-01-30 14:57 | Internal Med Progress Note ---
Date of Encounter: 01/30/17 Time of Encounter: 13:05 - Assessment and plan (1) Atrial fibrillation Current Visit: No Status: Acute Assessment and plan: Paroxysmal Afib cardiology on board and consultation appreciated continue home dose of cardizem 240mg PO qd added Sotalol started Xarelto for anticoagulation Qualifiers: Atrial fibrillation type: paroxysmal Qualified Code(s): I48.0 - Paroxysmal atrial fibrillation (2) Hypertension Current Visit: No Status: Chronic Assessment and plan: BP within acceptable range awaiting verification of home medications will closely monitor Qualifiers: Hypertension type: essential hypertension Qualified Code(s): I10 - Essential (primary) hypertension (3) Hypokalemia Current Visit: Yes Status: Acute Assessment and plan: K supplemented continue to monitor electrolytes and replace as needed (4) DVT prophylaxis Current Visit: No Status: Acute Assessment and plan: on Xarelto - Subjective Interval history: Patient seen and examined at bedside. Resting in bed and reports of feeling better since hospitalization. rate currently controlled on PO cardizem and Sotalol added by cardiology. Started on Xarelto for anticoagulation. Pt reports of having a dry cough for the last few days and is requesting cough syrup. - Constitutional Vitals: Temp Pulse Resp BP Pulse Ox 98.2 F 80 20 139/99 94 01/30/17 07:17 01/30/17 07:17 01/30/17 11:27 01/30/17 07:17 01/30/17 11:27 General appearance: Present: cooperative, A&O X 3, no acute distress, answers questions appropriately - Head Head exam: Present: atraumatic, normocephalic - Eye Eye exam: Present: conjuntiva pink, sclera anicteric - Respiratory Respiratory exam: Present: CTAB. Absent: respiratory distress, wheezes - Cardiovascular Cardiovascular exam: Present: irregular rhythm, +S1, +S2. Absent: diastolic murmur, systolic murmur - GI/Abdominal GI/Abdominal exam: Present: normal bowel sounds, soft, no peritoneal signs. Absent: distended, tenderness - Extremities Exam Extremities exam: Present: warm, radial pulses palpable and symmetrical. Absent : calf tenderness, cyanotic, pedal edema - Neurological Exam Neurological exam: Present: alert, oriented X3 - Psychiatric Psychiatric exam: Present: normal affect, normal mood Internal Medicine: Result - Labs CBC & Chem 7: 01/30/17 03:13 01/30/17 03:13 Labs: Short CBC 01/30/17 Range/Units 03:13 WBC 8.5 (4.3-11.1) K/mcL Hgb 14.7 (12.9-16.9) g/dL Hct 43.6 (37.5-50.1) % Plt Count 174 (140-400) K/mcL BMP 01/30/17 03:13 Sodium 137 Potassium 3.4 L Chloride 104 Carbon Dioxide 26 BUN 11 Creatinine 1.01 Glucose 106 H Calcium 8.5 L Cardiac Enzymes 01/29/17 01/30/17 01/30/17 Range/Units 20:51 03:13 08:40 Troponin I 0.01 0.01 0.01 (0-0.03) ng/mL - Impressions Impressions Echocardiogram 01/29/17 16:49 Impressions: LVEF 60%. Normal LV chamber size, wall thickness and function. Indeterminate diastolic function. Normal right ventricular structure and function. Mild to moderately dilated left atrium. No evidence of pulmonary hypertension. No significant valvular dysfunction. Left Ventricular Wall Motion: Rest Echo Findings All wall segments showed normal motion. Findings: Study Quality * Technically adequate exam. ECG Findings * Atrial fibrillation. Left Ventricle * LVEF 60%. * Normal LV chamber size, wall thickness and function. * Indeterminate diastolic function. Right Ventricle * Normal right ventricular structure and function. Left Atrium * Mild to moderately dilated left atrium. Right Atrium * Normal right atrial size. Aortic Valve * Aortic valve not well visualized. * No aortic regurgitation. * No aortic stenosis. Mitral Valve * Normal mitral valve structure and function. * No mitral regurgitation. * No mitral stenosis. Tricuspid Valve * Normal tricuspid valve structure and function. * Trace tricuspid regurgitation. * No evidence of pulmonary hypertension. Pulmonic Valve * Normal pulmonic valve structure and function. * No pulmonic regurgitation. Aorta * Normally sized aortic root. Pericardium * The pericardium appears normal. IVC * Normal IVC dimensions and inspiratory collapse. Pulmonary Artery * Normal visualized portions of the main pulmonary artery. Consult Discharge Plan - Plan Referrals: NONE,PCP [Primary Care Provider] -
[2017-01-30] MEDS: *HR* Rivaroxaban 10 MG TABLET PO SCH (17:01)
[2017-01-30] MEDS: GuaiFENesin Liq 200 MG/10 ML UDC PO PRN (19:33)
[2017-01-31] MEDS: Ipratropium/Albuterol Neb 3 ML IH SCH ×6 (03:25→23:47)
[2017-01-31 06:57] LABS: Basophils # 0.1 K/mcL (0.0-0.2); Basophils % 0.8 %; Eosinophils # 0.4 K/mcL (0.0-0.6); Eosinophils % 5.3 %; Hematocrit 42.5 % (37.5-50.1); Hemoglobin 14.2 g/dL (12.9-16.9); Immature Granulocytes % 0.4 % (0-4); Lymphocytes # 2.4 K/mcL (0.6-4.6); Lymphocytes % 31.2 %; Mean Corpuscular HGB Conc 33.4 g/dL (31.6-35.5); Mean Corpuscular Hemoglobin 29.3 pg (28.0-33.3); Mean Corpuscular Volume 87.8 fL (83.0-100.0); Mean Platelet Volume 10.9 fL (9.4-12.4); Monocytes # 0.8 K/mcL (0.0-1.3); Monocytes % 10.6 %; Platelet Count 165 K/mcL (140-400); Red Blood Count 4.84 M/mcL (4.19-5.50); Red Cell Distribution Width 13.3 % (11.5-14.5); Segmented Neutrophils % 51.7 %
[2017-01-31 06:59] LABS: Hemoglobin A1C 5.4 %
[2017-01-31 07:03] LABS: BUN/Creatinine Ratio 10 (6-26); Blood Urea Nitrogen 8 mg/dL (8-26); Calcium 8.4 mg/dL (8.6-10.8); Carbon Dioxide 24 mEq/L (19-29); Chloride 107 mEq/L (98-109); Glucose 99 mg/dL (70-99); Osmolality,Calculated 282 (280-300); Potassium 3.8 mEq/L (3.5-4.5); Sodium 137 mEq/L (136-145); eGFR For African Americans > 60 (> 60); eGFR For Non-African Americans > 60 (> 60)
[2017-01-31 07:04] LABS: Phosphorous 3.2 mg/dL (2.3-4.7)
[2017-01-31] MEDS: Diltiazem CD (24hr) 240 MG CAPSULE PO SCH (09:02)
[2017-01-31] MEDS: Aspirin 81 MG TAB.CHEW PO SCH (09:02)
[2017-01-31] MEDS: GuaiFENesin Liq 200 MG/10 ML UDC PO PRN ×2 (09:02→16:55)
[2017-01-31] MEDS ORDERED: Furosemide 20 MG/2 ML VIAL IVP ONE (10:33)
--- NOTE | 2017-01-31 10:38 | Internal Med Progress Note ---
Date of Encounter: 01/31/17 Time of Encounter: 10:33 - Assessment and plan (1) Atrial fibrillation Current Visit: No Status: Acute Assessment and plan: Paroxysmal Afib cardiology on board and consultation appreciated continue home dose of cardizem 240mg PO qd continue Sotalol continue Xarelto for anticoagulation tentative cardioversion in am as per cardio Qualifiers: Atrial fibrillation type: paroxysmal Qualified Code(s): I48.0 - Paroxysmal atrial fibrillation (2) Hypertension Current Visit: No Status: Chronic Assessment and plan: Noted to be hypertensive this morning restarted patient's home dose of Lisinopril 40mg PO qd will closely monitor BP and adjust medications as needed Qualifiers: Hypertension type: essential hypertension Qualified Code(s): I10 - Essential (primary) hypertension (3) Hypokalemia Current Visit: Yes Status: Resolved (4) DVT prophylaxis Current Visit: No Status: Acute Assessment and plan: on Xarelto - Subjective Interval history: Patient seen and examined at bedside. resting in bed and overnight noted to be in respiratory distress requiring O2 supplementation. Noted to have bibasilar crackles on auscultation, likely secondary to IV fluid supplementation. Will give one time dose of Lasix 20mg IV. Cardiology on board Rate controlled with Cardizem and Sotalol but remains to have Afib with RVR Cough improved from previous day - Constitutional Vitals: Temp Pulse Resp BP Pulse Ox 97.5 F L 70 20 150/100 98 01/31/17 06:07 01/31/17 06:07 01/31/17 08:02 01/31/17 06:07 01/31/17 08:02 General appearance: Present: cooperative, A&O X 3, no acute distress, answers questions appropriately - Head Head exam: Present: atraumatic, normocephalic - Respiratory Respiratory exam: Absent: accessory muscle use, respiratory distress, wheezes ( bibasilar crackles) - Cardiovascular Cardiovascular exam: Present: irregular rhythm, +S1, +S2. Absent: diastolic murmur, systolic murmur - GI/Abdominal GI/Abdominal exam: Present: normal bowel sounds, soft, no peritoneal signs. Absent: distended, tenderness - Extremities Exam Extremities exam: Present: warm, radial pulses palpable and symmetrical. Absent : calf tenderness, cyanotic, pedal edema - Neurological Exam Neurological exam: Present: alert, oriented X3 - Psychiatric Psychiatric exam: Present: normal affect, normal mood Internal Medicine: Result - Labs CBC & Chem 7: 01/31/17 06:01 01/31/17 06:01 Labs: Short CBC 01/31/17 Range/Units 06:01 WBC 7.7 (4.3-11.1) K/mcL Hgb 14.2 (12.9-16.9) g/dL Hct 42.5 (37.5-50.1) % Plt Count 165 (140-400) K/mcL Neutrophils # 4.0 (1.6-8.9) K/mcL BMP 01/31/17 06:01 Sodium 137 Potassium 3.8 Chloride 107 Carbon Dioxide 24 BUN 8 Creatinine 0.82 Glucose 99 Calcium 8.4 L - Impressions Impressions Echocardiogram 01/29/17 16:49 Impressions: LVEF 60%. Normal LV chamber size, wall thickness and function. Indeterminate diastolic function. Normal right ventricular structure and function. Mild to moderately dilated left atrium. No evidence of pulmonary hypertension. No significant valvular dysfunction. Left Ventricular Wall Motion: Rest Echo Findings All wall segments showed normal motion. Findings: Study Quality * Technically adequate exam. ECG Findings * Atrial fibrillation. Left Ventricle * LVEF 60%. * Normal LV chamber size, wall thickness and function. * Indeterminate diastolic function. Right Ventricle * Normal right ventricular structure and function. Left Atrium * Mild to moderately dilated left atrium. Right Atrium * Normal right atrial size. Aortic Valve * Aortic valve not well visualized. * No aortic regurgitation. * No aortic stenosis. Mitral Valve * Normal mitral valve structure and function. * No mitral regurgitation. * No mitral stenosis. Tricuspid Valve * Normal tricuspid valve structure and function. * Trace tricuspid regurgitation. * No evidence of pulmonary hypertension. Pulmonic Valve * Normal pulmonic valve structure and function. * No pulmonic regurgitation. Aorta * Normally sized aortic root. Pericardium * The pericardium appears normal. IVC * Normal IVC dimensions and inspiratory collapse. Pulmonary Artery * Normal visualized portions of the main pulmonary artery. Consult Discharge Plan - Plan Referrals: NONE,PCP [Primary Care Provider] -
--- NOTE | 2017-01-31 11:52 | Cardiology Progress Note ---
Date of Encounter: 01/31/17 Time of Encounter: 08:30 Assessment and Plan (1) Atrial fibrillation Current Visit: No Status: Acute Per cardiology: -Known history of Proximal atrial fibrillation. -Prior stress test negative for ischemia, LV function normal. -Started on sotalol 80mg Q12 hours, s/p 2 doses. -Baseline ECG with a.fib RVR, HR 123. Qt 324/QTc 397ms. -ECG today with atrial fibrillation, HR 75. QT 416, QTc 444ms. -CHADS-VASc 1-2 (HTN, possible DM per ). On xarelto. -Continue sotalol. -Will make NPO after midnight. -Possible JUVENTINO/DCCV in am (patient has not been anticoagulated previously). Qualifiers: Atrial fibrillation type: paroxysmal Qualified Code(s): I48.0 - Paroxysmal atrial fibrillation Discussion w patient/family: The assessment and plan as outlined above was discussed with the patient who expressed understanding and agreement. All questions were answered. Thank you for involving us in the care of your patient. Please call with any questions. Discussed and reviewed with . Subjective Principal diagnosis: atrial fibrillation Interval history: Patient states he feels well this morning. Denies palpitations or fluttering. Objective Vital Signs, Last 4 Hours Resp Pulse Ox 01/31/17 11:48 97 01/31/17 11:27 18 97 01/31/17 08:02 20 98 Vital Signs Temperature 98.3 F 01/29/17 14:47 Pulse Rate 90 01/29/17 14:47 Respiratory Rate 20 01/29/17 14:47 Blood Pressure 168/124 01/29/17 14:47 O2 Sat by Pulse Oximetry 96 01/29/17 14:47 Temperature 97.5 F L 01/31/17 06:07 Pulse Rate 70 01/31/17 06:07 Respiratory Rate 18 01/31/17 11:27 Blood Pressure 150/100 01/31/17 06:07 O2 Sat by Pulse Oximetry 97 01/31/17 11:48 Oxygen Delivery Oxygen Delivery Room Air General: Conversant, No Apparent Distress HEENT: Atraumatic, Normocephaly, Mucus Membranes Moist Neck: No JVD, Normal carotid pulses Cardiac: Normal S1 and S2, No Murmur, Other (Irregularly irregular) Lungs: Normal Breath Sounds, No Wheeze, Rales, Rhonchi Neuro: Alert and responsive, No focal deficits noted Abdomen: Soft, Non-Tender Skin: No rashes noted on visualized skin Musculoskeletal: No Chest Wall Tenderness Extremities: No Clubbing, No Cyanosis, No Edema, Normal Pulses Results 01/31/17 06:01 01/31/17 06:01 Lab Results Impressions Echocardiogram 01/29/17 16:49 Impressions: LVEF 60%. Normal LV chamber size, wall thickness and function. Indeterminate diastolic function. Normal right ventricular structure and function. Mild to moderately dilated left atrium. No evidence of pulmonary hypertension. No significant valvular dysfunction. Left Ventricular Wall Motion: Rest Echo Findings All wall segments showed normal motion. Findings: Study Quality * Technically adequate exam. ECG Findings * Atrial fibrillation. Left Ventricle * LVEF 60%. * Normal LV chamber size, wall thickness and function. * Indeterminate diastolic function. Right Ventricle * Normal right ventricular structure and function. Left Atrium * Mild to moderately dilated left atrium. Right Atrium * Normal right atrial size. Aortic Valve * Aortic valve not well visualized. * No aortic regurgitation. * No aortic stenosis. Mitral Valve * Normal mitral valve structure and function. * No mitral regurgitation. * No mitral stenosis. Tricuspid Valve * Normal tricuspid valve structure and function. * Trace tricuspid regurgitation. * No evidence of pulmonary hypertension. Pulmonic Valve * Normal pulmonic valve structure and function. * No pulmonic regurgitation. Aorta * Normally sized aortic root. Pericardium * The pericardium appears normal. IVC * Normal IVC dimensions and inspiratory collapse. Pulmonary Artery * Normal visualized portions of the main pulmonary artery. Active Medications Acetaminophen (Tylenol) 650 mg PO Q6HR PRN PRN Reason: Mild Pain (1-3) Stop: 07/31/17 16:47 Albuterol/Ipratropium (Duoneb) 3 ml IH [id number] [facility] Stop: 07/31/17 20:01 Last Admin: 01/31/17 11:26 Dose: 3 ml Aspirin (Aspirin) 81 mg PO DAILY [facility] Stop: 08/01/17 09:01 Last Admin: 01/31/17 09:02 Dose: 81 mg Diltiazem HCl (Cardizem Cd) 240 mg PO DAILY [facility] Stop: 08/01/17 09:16 Last Admin: 01/31/17 09:02 Dose: 240 mg Guaifenesin (Robitussin Liq) 200 mg PO Q6HR PRN PRN Reason: Cough Stop: 08/01/17 14:39 Last Admin: 01/31/17 09:02 Dose: 200 mg Lisinopril (Zestril) 40 mg PO DAILY GOKUL PRN Reason: Protocol Stop: 08/03/17 09:01 Naloxone HCl (Narcan) 0.4 mg IVP Q2MIN PRN PRN Reason: Opioid Reversal Stop: 07/31/17 16:47 Rivaroxaban (Xarelto) 20 mg PO 1700 GOKUL Stop: 08/01/17 17:01 Last Admin: 01/30/17 17:01 Dose: 20 mg Sotalol HCl (Betapace) 80 mg PO Q12H [facility] Stop: 08/02/17 09:01 Last Admin: 01/31/17 09:11 Dose: 80 mg Laboratory Tests 01/29/17 01/29/17 01/29/17 15:06 15:06 20:51 Hgb Potassium Creatinine Magnesium Troponin I 0.01 0.01 TSH 1.315 01/30/17 01/30/17 01/30/17 03:13 03:13 08:40 Hgb Potassium Creatinine 1.01 Magnesium Troponin I 0.01 0.01 TSH 01/31/17 01/31/17 06:01 06:01 Hgb 14.2 Potassium 3.8 Creatinine 0.82 Magnesium 2.0 Troponin I TSH - Imaging and Cardiology Chest Xray: report reviewed Echo: report reviewed - EKG Interpretation EKG results cardiology: personally reviewed (ECG today with atrial fibrillation , HR 75. Qt 416/QTc 444ms.), other (Telemetry reviewed with average HR previous 12 hours noted to be 73, atrial fibrillation. PVCS noted.) Consult Discharge Plan - Plan Referrals: NONE,PCP [Primary Care Provider] -
[2017-01-31] MEDS: *HR* Rivaroxaban 10 MG TABLET PO SCH (16:54)
--- NOTE | 2017-01-31 17:36 | Electrocardiograph Report ---
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
[2017-02-01 03:44] LABS: Basophils # 0.1 K/mcL (0.0-0.2); Basophils % 0.9 %; Eosinophils # 0.5 K/mcL (0.0-0.6); Eosinophils % 6.1 %; Hematocrit 42.2 % (37.5-50.1); Hemoglobin 14.2 g/dL (12.9-16.9); Immature Granulocytes % 0.9 % (0-4); Lymphocytes # 2.9 K/mcL (0.6-4.6); Lymphocytes % 37.2 %; Mean Corpuscular HGB Conc 33.6 g/dL (31.6-35.5); Mean Corpuscular Hemoglobin 29.8 pg (28.0-33.3); Mean Corpuscular Volume 88.5 fL (83.0-100.0); Monocytes # 0.8 K/mcL (0.0-1.3); Monocytes % 9.7 %; Neutrophils # 3.6 K/mcL (1.6-8.9); Platelet Count 185 K/mcL (140-400); Red Blood Count 4.77 M/mcL (4.19-5.50); Red Cell Distribution Width 13.2 % (11.5-14.5); Segmented Neutrophils % 45.2 %
[2017-02-01 04:01] LABS: BUN/Creatinine Ratio 13 (6-26); Blood Urea Nitrogen 12 mg/dL (8-26); Calcium 8.6 mg/dL (8.6-10.8); Carbon Dioxide 26 mEq/L (19-29); Chloride 105 mEq/L (98-109); Glucose 114 mg/dL (70-99); Magnesium 2.1 mg/dL (1.6-2.6); Osmolality,Calculated 287 (280-300); Phosphorous 3.6 mg/dL (2.3-4.7); Potassium 3.4 mEq/L (3.5-4.5); Sodium 138 mEq/L (136-145); eGFR For African Americans > 60 (> 60); eGFR For Non-African Americans > 60 (> 60)
[2017-02-01] MEDS: Ipratropium/Albuterol Neb 3 ML IH SCH ×3 (04:02→11:00)
[2017-02-01] MEDS: Aspirin 81 MG TAB.CHEW PO SCH (08:16)
[2017-02-01] MEDS: Diltiazem CD (24hr) 240 MG CAPSULE PO SCH (08:16)
[2017-02-01] MEDS ORDERED: Lisinopril 20 MG TABLET PO SCH (09:00)
--- NOTE | 2017-02-01 09:41 | Electrocardiograph Report ---
[place] [id number] Test Date: 2017-01-29 Pat Name: Quirino Simental Department: 104 Room: 2NE35 Gender: M [employer]: : 1965 Requested By: Cruz Bowman Order Number: [id number] Reading MD: Fernando Lawler DO Measurements Intervals [place] Rate: 123 P: [place]: 0 QRS: 50 QRSD: 101 T: 79 QT: 324 QTc: 397 Interpretive Statements ATRIAL FIBRILLATION WITH RAPID VENTRICULAR RESPONSE POSSIBLE RIGHT VENTRICULAR CONDUCTION DELAY [RSR (QR) IN V1/V2] POSSIBLE LEFT VENTRICULAR HYPERTROPHY [VOLTAGE CRITERIA PLUS LAE OR QRS WIDENING] NONSPECIFIC ST & T-WAVE ABNORMALITY Electronically Signed On 02-01-2017 9:39:42 EST by Fernando Lawler DO
[2017-02-01 10:16] VITALS: BP 134/90
--- NOTE | 2017-02-01 10:23 | Cardiology Progress Note ---
Date of Encounter: 02/01/17 Time of Encounter: 09:30 Assessment and Plan (1) Atrial fibrillation Current Visit: No Status: Acute Per cardiology: -Known history of Proximal atrial fibrillation. -Prior stress test negative for ischemia, LV function normal. -Started on sotalol 80mg Q12 hours, s/p 5 doses. -Baseline ECG with a.fib RVR, HR 123. Qt 324/QTc 397ms. -ECG yesterday with atrial fibrillation, HR 75. QT 416, QTc 444ms. -ECG today with sinus rhythm, HR 61. QT 438, QTc 447ms. -Average HR previous 12 hours noted to be 61, sinus rhythm. -CHADS-VASc 1-2 (HTN, possible DM per ). On xarelto. -BP 130 systolic after his medications this morning. -No need for JUVENTINO/DCCV, patient is now SR. -Will change diet to cardiac diet. -Cardiology will sign off and will follow in outpatient setting. Follow up set. OF note, patient has [employer] insurance, however would like to follow with [facility] if able, will send message to schedulers in our office. Qualifiers: Atrial fibrillation type: paroxysmal Qualified Code(s): I48.0 - Paroxysmal atrial fibrillation Discussion w patient/family: The assessment and plan as outlined above was discussed with the patient and family who expressed understanding and agreement. All questions were answered. Thank you for involving us in the care of your patient. Please call with any questions. Discussed and reviewed with . Subjective Principal diagnosis: atrial fibrillation Interval history: Patient states he feels well this morning. Denies palpitations or fluttering. Patient states he feels like he is ready to go home. Objective Vital Signs, Last 4 Hours Temp Pulse Resp BP Pulse Ox 02/01/17 10:11 97.8 F 72 14 134/90 97 02/01/17 06:34 97.8 F 72 14 164/102 93 General: Conversant, No Apparent Distress HEENT: Atraumatic, Normocephaly, Mucus Membranes Moist Neck: No JVD, Normal carotid pulses Cardiac: Reg Rate and Rhythm, Normal S1 and S2, No Murmur Lungs: Normal Breath Sounds, No Wheeze, Rales, Rhonchi Neuro: Alert and responsive, No focal deficits noted Abdomen: Soft, Non-Tender Skin: No rashes noted on visualized skin Musculoskeletal: No Chest Wall Tenderness Extremities: No Clubbing, No Cyanosis, No Edema, Normal Pulses Results 02/01/17 02:52 02/01/17 02:52 Lab Results Active Medications Acetaminophen (Tylenol) 650 mg PO Q6HR PRN PRN Reason: Mild Pain (1-3) Stop: 07/31/17 16:47 Albuterol/Ipratropium (Duoneb) 3 ml IH [id number] [facility] Stop: 07/31/17 20:01 Last Admin: 02/01/17 08:04 Dose: 3 ml Aspirin (Aspirin) 81 mg PO DAILY [facility] Stop: 08/01/17 09:01 Last Admin: 02/01/17 08:16 Dose: 81 mg Diltiazem HCl (Cardizem Cd) 240 mg PO DAILY [facility] Stop: 08/01/17 09:16 Last Admin: 02/01/17 08:16 Dose: 240 mg Guaifenesin (Robitussin Liq) 200 mg PO Q6HR PRN PRN Reason: Cough Stop: 08/01/17 14:39 Last Admin: 01/31/17 16:55 Dose: 200 mg Hydralazine HCl (Hydralazine) 10 mg IVP Q6HR PRN PRN Reason: SBP>150 Stop: 08/03/17 08:09 Last Admin: 02/01/17 08:16 Dose: 10 mg Lisinopril (Zestril) 40 mg PO DAILY GOKUL PRN Reason: Protocol Stop: 08/03/17 09:01 Last Admin: 02/01/17 08:16 Dose: 40 mg Naloxone HCl (Narcan) 0.4 mg IVP Q2MIN PRN PRN Reason: Opioid Reversal Stop: 07/31/17 16:47 Rivaroxaban (Xarelto) 20 mg PO 1700 [facility] Stop: 08/01/17 17:01 Last Admin: 01/31/17 16:54 Dose: 20 mg Sotalol HCl (Betapace) 80 mg PO Q12H [facility] Stop: 08/02/17 09:01 Last Admin: 02/01/17 08:16 Dose: 80 mg Laboratory Tests 02/01/17 02/01/17 02:52 02:52 Hgb 14.2 Potassium 3.4 L Creatinine 0.91 Magnesium 2.1 - Imaging and Cardiology Chest Xray: report reviewed Echo: report reviewed - EKG Interpretation EKG results cardiology: personally reviewed (ECG today with Sinus rhythm, HR 64. QT 438, QTc 447ms.), other (Telemetry reviewed with average HR previous 12 hours noted to be 61, sinus rhythm. PVCs and PACs noted.) Consult Discharge Plan - Plan Referrals: NONE,PCP [Primary Care Provider] -
--- NOTE | 2017-02-01 10:51 | Discharge Summary ---
Date of Encounter: 02/01/17 Time of Encounter: 10:05 - Discharge Diagnosis (1) Atrial fibrillation Priority: Primary Status: Acute Qualifiers: Atrial fibrillation type: paroxysmal Qualified Code(s): I48.0 - Paroxysmal atrial fibrillation (2) Hypertension Priority: Secondary Status: Chronic Qualifiers: Hypertension type: essential hypertension Qualified Code(s): I10 - Essential (primary) hypertension (3) Hypokalemia Priority: Secondary Status: Acute (4) DVT prophylaxis Priority: Secondary Status: Acute - Discharge Medications Prescriptions: Rivaroxaban [Xarelto] 20 mg PO 1700 #30 tablet Sotalol [Betapace] 80 mg PO Q12H #60 tablet Home Medications: Aspirin 81 mg PO DAILY #30 tab.chew 06/02/16 [Rx] dilTIAZem HCl [Diltiazem ER] 240 mg PO DAILY 01/29/17 [History] Lisinopril [Zestril] 40 mg PO DAILY 01/30/17 [History] Rivaroxaban [Xarelto] 20 mg PO 1700 #30 tablet 02/01/17 [Rx] Sotalol [Betapace] 80 mg PO Q12H #60 tablet 02/01/17 [Rx] Allergies/Adverse Reactions: 3 Allergy/AdvReac Type Severity Reaction Status Date / Time Iodinated Contrast- Oral and Allergy Rash Verified 01/29/17 14:47 IV Dye [Iodinated Contrast Media - IV Dye] Penicillins [PCN] Allergy Rash Verified 01/29/17 14:47 Procedures/tests Complete & Pending: Procedures Performed prior 72 hours Category Date Time Status ECG 12 lead ECG [ECG] AM 0600 Y 01/31/17 06:00 Completed ECG 12 lead ECG [ECG] AM 0600 Y 02/01/17 06:00 Ordered ECG 12 lead ECG [ECG] AM 0600 Y 02/02/17 06:00 Ordered EV echocardiogram Routine Y 01/29/17 16:49 Completed Date of admission: 01/29/17 16:46 Primary care physician: PCP NONE Consults: Cardiology: Dr. Lawler Discharging clinician: Manjula Cervantes Anticipated date of discharge: 02/01/17 - Patient Status Disposition: Home, Self-Care Condition: Good Functional capacity at discharge: independent ambulation Overall status at discharge: patient is back to baseline - Discharge Instructions Instructions: Rivaroxaban (By mouth) Follow Up With: NONE,PCP [Primary Care Provider] - Additional Instructions: Please follow up with your primary care physician within five days after your discharge from the hospital. Please follow up with cardiology within one to two weeks after your discharge from the hospital. Your home medications have been changed as follows: 1. Xarelto 20mg Once a day has been added 2. Sotalol 80mg twice a day has been added. Please closely monitor your BP at home, and keep a log of these daily BP readings. Your blood pressure medications will be readjusted by your primary care physician as per these BP readings. Your risk of bleeding is increased with Xarelto, please seek medical help if you sustain a fall or have an acute bleed. Resume all other medications as prescribed by your primary care physician. - Diet and Activity Activity: resume usual activities as tolerated Diet: low salt diet Hospital course: Mr. Simental is a 51 year old male with PMH of HTN who was admitted for afib. He was evaluated by cardiology and started on Sotalol in addition to continuation of his home dose of Cardizem. He was started on Xarelto for anticoagulation. Cardiology initially considered JUVENTINO/cardioversion given persistent arrhythmia, however pt was found to be in NSR this morning due to which cardioversion/JUVENTINO was cancelled and cardiology signed off. Pt's hospital course was complicated by acute respiratory distress secondary to volume overload requiring IV lasix x one dose. Pt responded appropriately to therapy and is currently at baseline respiration status, saturating well on room air. Pt is currently hemodynamically stable and denies any discomfort. He will be discharged to home with follow up with PCP and cardiology. - Time Spent with Patient Total time spent providing and/or coordinating discharge services: Greater than 30 minutes - Constitutional Vitals: Temp Pulse Resp BP Pulse Ox 97.8 F 72 14 134/90 97 02/01/17 10:11 02/01/17 10:11 02/01/17 10:11 02/01/17 10:11 02/01/17 10:11 General appearance: Present: cooperative, A&O X 3, no acute distress, answers questions appropriately - Head Head exam: Present: atraumatic, normocephalic - Respiratory Respiratory exam: Present: CTAB. Absent: respiratory distress, wheezes - Cardiovascular Cardiovascular exam: Present: RRR, +S1, +S2. Absent: diastolic murmur, gallop, rubs, systolic murmur - GI/Abdominal GI/Abdominal exam: Present: normal bowel sounds, soft, no peritoneal signs. Absent: distended, tenderness - Extremities Exam Extremities exam: Present: warm, radial pulses palpable and symmetrical. Absent : calf tenderness, cyanotic, pedal edema - Neurological Exam Neurological exam: Present: alert, oriented X3 - Psychiatric Psychiatric exam: Present: normal affect, normal mood
--- NOTE | 2017-02-02 12:23 | Electrocardiograph Report ---
[place] [id number] Test Date: 2017-02-01 Pat Name: Quirino Simental Department: 111 Room: 2N5 Gender: M Cast [employer] Dipper: [facility] : 1965 Requested By: Micky Newton Order Number: [id number] Reading MD: Fernando Lawler DO Measurements Intervals [place] Rate: 64 P: 54 [place]: 168 QRS: 33 QRSD: 100 T: 40 QT: 438 QTc: 447 Interpretive Statements SINUS RHYTHM WITH SINUS ARRHYTHMIA POSSIBLE RIGHT VENTRICULAR CONDUCTION DELAY Electronically Signed On 02-02-2017 12:21:33 EST by Fernando Lawler DO
== END 2017-02-01 12:15 | disposition home or self-care (01) | DRG 201 ==
LOC: EMEROO 14:45 → 2NENU 14:45 → SUATTDRO 16:46 → 2NENU 17:02
PROVIDERS: ADMIT Internal Medicine Cardiovascular Disease; ATTEND Internal Medicine

== ENCOUNTER 2019-08-18 16:54 | Observation (INO) ==
[2019-08-18] MEDS ORDERED: *HR* Promethazine 25 MG/ML VIAL IVP PRN (19:44)
[2019-08-18] MEDS ORDERED: Naloxone 0.4 MG/ML INJ IVP PRN (19:44)
[2019-08-18] MEDS ORDERED: Acetaminophen 325 MG TABLET PO PRN (19:44)
[2019-08-18] MEDS ORDERED: Potassium Chloride 40 MEQ, Lidocaine 1% 2 ML in 0.9 % Sodium Chloride 500 ML IVPB ONE (19:49)
[2019-08-18] MEDS: 0.9 % Sodium Chloride 1,000 ML IVC SCH (21:01)
[2019-08-18] MEDS: MetroNIDAZOLE 500 MG/100 ML 500 MG/100 ML BAG IVPB SCH (23:31)
[2019-08-19 02:14] LABS: INR 1.3; Prothrombin Time 14.8 Seconds (9.4-12.1)
[2019-08-19 02:15] LABS: Hematocrit 41.9 % (37.5-50.1); Hemoglobin 13.6 g/dL (12.9-16.9); Mean Corpuscular HGB Conc 32.5 g/dL (31.6-35.5); Mean Corpuscular Hemoglobin 29.4 pg (28.0-33.3); Mean Corpuscular Volume 90.7 fL (83.0-100.0); Platelet Count 212 K/mcL (140-400); Red Blood Count 4.62 M/mcL (4.19-5.50); Red Cell Distribution Width 13.2 % (11.5-14.5); White Blood Count 10.8 K/mcL (4.3-11.1)
[2019-08-19 02:28] LABS: BUN/Creatinine Ratio 15 (6-26); Blood Urea Nitrogen 12 mg/dL (6-20); Calcium 7.9 mg/dL (8.6-10.3); Carbon Dioxide 26 mEq/L (23-29); Chloride 106 mEq/L (98-107); Glucose 119 mg/dL (70-105); Magnesium 1.9 mg/dL (1.6-2.6); Osmolality,Calculated 283 (280-300); Phosphorous 2.5 mg/dL (2.7-4.5); Potassium 3.5 mEq/L (3.5-5.1); Sodium 136 mEq/L (136-145); eGFR For African Americans > 60 (> 60); eGFR For Non-African Americans > 60 (> 60)
[2019-08-19] MEDS: 0.9 % Sodium Chloride 1,000 ML IVC SCH (10:03)
[2019-08-19] MEDS: MetroNIDAZOLE 500 MG/100 ML 500 MG/100 ML BAG IVPB SCH ×3 (10:04→23:25)
[2019-08-19] MEDS ORDERED: *HR* Promethazine 25 MG/ML VIAL IVP PRN ×3 (14:31→17:47)
[2019-08-19] MEDS ORDERED: *HR* Meperidine 25 MG/ML SYRINGE IVP PRN ×2 (14:31→17:47)
[2019-08-19] MEDS ORDERED: *HR* HYDROmorphone PF 0.5 MG/0.5 ML SYRINGE IVP PRN ×2 (14:31→17:47)
[2019-08-19] MEDS ORDERED: Ondansetron 4 MG/2 ML VIAL IVP ONE ×2 (14:31→17:47)
[2019-08-19] MEDS ORDERED: *HR* OxyCODONE Immed Rel 5 MG TABLET PO PRN ×2 (14:31→17:47)
[2019-08-19] MEDS ORDERED: *HR* Succinylcholine 200 MG/10 ML VIAL IVP ONE (15:57)
[2019-08-19] MEDS ORDERED: Lidocaine -MPF 2% 2 ML VIAL ONE (15:57)
[2019-08-19] MEDS ORDERED: *HR* Rocuronium Bromide 50 MG/5 ML VIAL ONE (15:57)
[2019-08-19] MEDS ORDERED: Dexamethasone 4 MG/ML VIAL ONE (15:57)
[2019-08-19] MEDS ORDERED: Lidocaine HCL 4 ML Topical Solution (Laryng-O-Jet Kit Sterile Pak) TP ONE (15:57)
[2019-08-19] MEDS ORDERED: Ondansetron 4 MG/2 ML VIAL ONE (15:57)
[2019-08-19] MEDS ORDERED: *HR* Propofol 200 MG/20 ML VIAL IVP ONE (15:58)
[2019-08-19] MEDS ORDERED: *HR* FentaNYL (PF) 100 MCG/2 ML VIAL ONE ×2 (15:58)
[2019-08-19] MEDS ORDERED: MetroNIDAZOLE 500 MG/100 ML 500 MG/100 ML BAG IVPB ONE (16:06)
[2019-08-19] MEDS ORDERED: Naloxone 0.4 MG/ML INJ IVP PRN (17:47)
[2019-08-19] MEDS ORDERED: Acetaminophen 325 MG TABLET PO PRN (17:47)
[2019-08-20 05:54] LABS: Hematocrit 44.7 % (37.5-50.1); Hemoglobin 14.6 g/dL (12.9-16.9); Mean Corpuscular HGB Conc 32.7 g/dL (31.6-35.5); Mean Corpuscular Hemoglobin 29.3 pg (28.0-33.3); Mean Corpuscular Volume 89.8 fL (83.0-100.0); Mean Platelet Volume 10.4 fL (9.4-12.4); Platelet Count 232 K/mcL (140-400); Red Blood Count 4.98 M/mcL (4.19-5.50); Red Cell Distribution Width 12.7 % (11.5-14.5); White Blood Count 11.4 K/mcL (4.3-11.1)
[2019-08-20 06:18] LABS: BUN/Creatinine Ratio 18 (6-26); Blood Urea Nitrogen 14 mg/dL (6-20); Calcium 8.6 mg/dL (8.6-10.3); Carbon Dioxide 22 mEq/L (23-29); Chloride 105 mEq/L (98-107); Glucose 199 mg/dL (70-105); Osmolality,Calculated 284 (280-300); Potassium 4.1 mEq/L (3.5-5.1); Sodium 134 mEq/L (136-145); eGFR For African Americans > 60 (> 60); eGFR For Non-African Americans > 60 (> 60)
[2019-08-20] MEDS ORDERED: lisinopriL 20 MG TABLET PO SCH ×2 (09:00)
[2019-08-20] MEDS ORDERED: DilTIAZem CD (24hr) 240 MG CAP.ER.24H PO SCH ×2 (09:00)
[2019-08-20] MEDS: MetroNIDAZOLE 500 MG/100 ML 500 MG/100 ML BAG IVPB SCH (09:03)
[2019-08-20 11:36] LABS: Estimated Average Glucose 137 mg/dl
[2019-08-20 13:42] VITALS: BP 162/83
== END 2019-08-20 14:54 | disposition home or self-care (01) ==
LOC: 3ANU → SUATTDRO 18:31
PROVIDERS: ADMIT Internal Medicine; ATTEND Internal Medicine